=== PATIENT | female | born 1945 | race American Indian/Alaskan Native ===

== ENCOUNTER 2016-12-05 18:46 | Observation (INO) | payer MEDICARE, OTHER ==
--- NOTE | 2016-12-05 19:11 | ED PDOC ---
Arrival/HPI <Chayo Mckinley - Last Filed: 12/05/16 20:43> - General Historian: Patient <Roque Garcia - Last Filed: 12/12/16 14:57> - General Chief Complaint: Dizziness/Lightheaded Time Seen by Provider: 12/05/16 18:50 - History of Present Illness Narrative History of Present Illness (Text): 12/05/16 19:09 71 year old female, pmh including hypertension/hyperlipidemia/renal insufficiency, nkda, complaining of feeling dizziness x 2 days and lt. shoulder pain started today. Pt. stated that she has been feeling dizziness, room spinning sensation as if she will fall and pass out, started to have the lt. shoulder pain today, no coughing or night sweat, no fall or trauma, no urinary symptoms, no night sweat, no palpitation, no other medical or psychological complaints. (Roque Garcia) Past Medical History - Provider Review Nursing Documentation Reviewed: Yes - Infectious Disease Hx of Infectious Diseases: None - Tetanus Immunization Tetanus Immunization: Unknown - Cardiac Hx Cardiac Disorders: Yes Hx Hypertension: Yes - Pulmonary Hx Respiratory Disorders: No - Neurological Hx Neurological Disorder: Yes Hx Dizziness: Yes (03/27/16) - HEENT Hx HEENT Disorder: No (wears glasses) - Renal Hx Renal Disorder: No - Endocrine/Metabolic Hx Endocrine Disorders: No - Hematological/Oncological Hx Blood Disorders: No - Integumentary Other/Comment: right forearm dark skin discoloration bi c/o pain/itch - Musculoskeletal/Rheumatological Hx Falls: No - Gastrointestinal Hx Gastrointestinal Disorders: Yes Hx Gastroesophageal Reflux: Yes - Genitourinary/Gynecological Hx Genitourinary Disorders: Yes - Psychiatric Hx Substance Use: No - Surgical History Hx Hysterectomy: Yes - Anesthesia Hx Anesthesia: Yes Hx Anesthesia Reactions: No Hx Malignant Hyperthermia: No - Suicidal Assessment Feels Threatened In Home Enviroment: No <Roque Garcia - Last Filed: 12/12/16 14:57> Family/Social History - Physician Review Nursing Documentation Reviewed: Yes Family/Social History: Unknown Family HX Smoking Status: Never Smoked Hx Alcohol Use: No Hx Substance Use: No Hx Substance Use Treatment: No <Roque Garcia - Last Filed: 12/12/16 14:57> Allergies/Home Meds <Chayo Mckinley - Last Filed: 12/05/16 20:43> <Garcia,Roque Q - Last Filed: 12/12/16 14:57> Allergies/Adverse Reactions: Allergies No Known Allergies Allergy (Verified 12/05/16 18:48) Home Medications: Home Meds Medication Instructions Recorded Confirmed hydrALAZINE [Apresoline] 100 mg PO BID 08/10/16 12/05/16 Losartan [Cozaar] 12.5 mg PO DAILY 12/05/16 12/05/16 Metoprolol Tartrate [Lopressor] 100 mg PO BID 12/05/16 12/05/16 Pravastatin Sodium [Pravachol] 40 mg PO DAILY 12/05/16 12/05/16 Review of Systems - Review of Systems Constitutional: Fatigue. absent: Fevers Eyes: absent: Vision Changes ENT: absent: Hearing Changes Respiratory: absent: SOB, Cough Cardiovascular: Chest Pain Gastrointestinal: absent: Abdominal Pain, Nausea, Vomiting Musculoskeletal: Arthralgias. absent: Back Pain, Neck Pain, Joint Swelling, Myalgias Neurological: Dizziness. absent: Headache, Focal Weakness, Gait Changes, Speech Changes, Facial Droop, Disequilibrium, Seizure <Roque Garcia Q - Last Filed: 12/12/16 14:57> Physical Exam Vital Signs Reviewed: Yes Temperature: Afebrile Blood Pressure: Normal Pulse: Regular Respiratory Rate: Normal Appearance: Positive for: Well-Appearing, Non-Toxic, Comfortable Pain Distress: Mild Mental Status: Positive for: Alert and Oriented X 3 - Systems Exam Head: Present: Atraumatic, Normocephalic Pupils: Present: PERRL Extroacular Muscles: Present: EOMI Conjunctiva: Present: Normal Mouth: Present: Moist Mucous Membranes Neck: Present: Normal Range of Motion Respiratory/Chest: Present: Clear to Auscultation, Good Air Exchange. No: Respiratory Distress, Accessory Muscle Use Cardiovascular: Present: Regular Rate and Rhythm, Normal S1, S2. No: Murmurs Abdomen: Present: Normal Bowel Sounds. No: Tenderness, Distention, Peritoneal Signs, Rebound, Guarding Back: Present: Normal Inspection Upper Extremity: Present: Normal Inspection, Other (Lt. shoulder: +ttp on the lt. anterior shoulder joint line with no swelling, no deformity, FROM without limitation with pain upon active movement, sensation intact, motor 5/5, +radial pulse, capillary refill< 2 seconds, neurovascular intact. ). No: Cyanosis, Edema Lower Extremity: Present: Normal Inspection. No: Edema Neurological: Present: GCS=15, Speech Normal, Motor Func Grossly Intact, Gait Normal, Memory Normal Skin: Present: Warm, Dry, Normal Color. No: Rashes Psychiatric: Present: Alert, Oriented x 3, Normal Insight, Normal Concentration <Roque Garcia - Last Filed: 12/12/16 14:57> Vital Signs Temp Pulse Resp BP Pulse Ox 12/05/16 21:21 66 18 123/79 95 12/05/16 18:54 97.6 F 70 16 144/64 100 Medical Decision Making <Chayo Mckinley - Last Filed: 12/05/16 20:43> - Lab Interpretations Interpretation: Abnormal lab values (K+ 2.8) - RAD Interpretation Machine Packer: Radiologist - EKG Interpretation Interpreted by ED Physician: Yes Type: 12 lead EKG Comparison: Com.w/previous EKG <Roque Garcia - Last Filed: 12/12/16 14:57> ED Course and Treatment: 12/05/16 19:10 -labs/ua/trop -swallow screen -ekg/cxr/CT head -Observe and reassess 12/05/16 21:17 -EKG: NSR @ 65 BPM, no St elevation or depression, no T wave inversion, prolong QT noted. -CT Head show no acute findings but will need follow up imaging if indicated -Labs are non-significant except potasskum 2.8, IVF and potassium ordered. -Pt. is high fall risk -Aspirin 325mg po ordered. -I discussed the labs/radiology results with the covering doctor DR. Del Cid, she agreed on the admission to the tele with Dr. Jeronimo for consults. -I discussed with Dr. Mckinley about the case and he will put in the admission order. (Roque Garcia) - Lab Interpretations Lab Results: 12/05/16 19:11 12/05/16 19:11 Lab Results 12/05/16 19:11: Sodium 130 L, Potassium 2.8 L* D, Chloride 89 L, Carbon Dioxide 29, Anion Gap 15, BUN 26 H, Creatinine 1.2, Est GFR ( Amer) 53, Est GFR ( Non-Af Amer) 44, Random Glucose 108, Calcium 9.5, Total Bilirubin 1.1, AST 28, ALT 32, Alkaline Phosphatase 58, Lactate Dehydrogenase 437, Total Creatine Kinase 169, Troponin I 0.02 D, NT-Pro-B Natriuret Pep 278, Total Protein 7.5, Albumin 4.2, Globulin 3.3, Albumin/Globulin Ratio 1.3 12/05/16 19:11: WBC 6.8, RBC 4.29, Hgb 11.7 L, Hct 34.2 L, MCV 79.7 L, MCH 27.3 , MCHC 34.2, RDW 14.5, Plt Count 258, MPV 9.8, Gran % 54.5, Lymph % (Auto) 36.5 H, [place] % (Auto) 7.1 H, Eos % (Auto) 1.6, Baso % (Auto) 0.3, Gran # 3.69, Lymph # 2.5, [place] # 0.5, Eos # 0.1, Baso # 0.02 - RAD Interpretation Radiology Orders: 12/05/16 19:06 HEAD W/O CONTRAST [CT] Stat CHEST PORTABLE [RAD] Stat 12/05/16 19:08 SHOULDER LEFT [RAD] Stat 12/05/16 19:35 DUPLEX UPPER EXTRM VEIN LEFT [US] Stat CT Head: Lt. shoulder xray: Chest x-ray: KWAME Venuous doppler: (Roque Garcia) - EKG Interpretation EKG Interpretation (Text): 12/05/16 20:16 -EKG: NSR @ 65 BPM, no St elevation or depression, no T wave inversion, prolong QT noted. (Roque Garcia) - Medication Orders Current Medication Orders: Discontinued Medications Acetaminophen (Tylenol 325mg Tab) 650 mg PO Q6H PRN PRN Reason: Fever >100.4 F Last Admin: 12/07/16 15:00 Dose: 650 mg Aspirin (Aspirin) 325 mg PO STAT ST[facility] Stop: 12/05/16 21:07 Last Admin: 12/05/16 21:21 Dose: 325 mg Aspirin (Ecotrin) 81 mg PO DAILY [facility] Last Admin: 12/07/16 10:06 Dose: 81 mg Atorvastatin Calcium (Lipitor) 10 mg PO DIN [facility] Last Admin: 12/06/16 17:57 Dose: 10 mg Hydralazine HCl (Apresoline) 100 mg PO BID [facility] Last Admin: 12/06/16 18:00 Dose: Not Given Non-Admin Reason: BP Parameters Not Met Hydralazine HCl (Apresoline) 50 mg PO BID [facility] Last Admin: 12/07/16 13:38 Dose: 50 mg Potassium Chloride 20 meq/ (Sodium Chloride) 1,010 mls @ 200 mls/hr IV .Q5H3M STA Stop: 12/06/16 01:17 Last Admin: 12/05/16 21:21 Dose: 200 mls/hr Potassium Chloride (Potassium Chloride 20 Meq/100 Ml) 20 meq in 100 mls @ 50 mls/hr IVPB Q2H [facility] Stop: 12/06/16 04:59 Last Admin: 12/06/16 04:36 Dose: 50 mls/hr Losartan Potassium (Cozaar) 12.5 mg PO DAILY [facility] Last Admin: 12/07/16 10:06 Dose: 12.5 mg Metoprolol Tartrate (Lopressor) 100 mg PO BRKDIN [facility] Last Admin: 12/07/16 07:55 Dose: Metoprolol Tartrate (Lopressor) 50 mg PO BID [facility] Last Admin: 12/07/16 10:07 Dose: 50 mg Potassium Chloride (K-Dur 20 Meq Er Tab) 20 meq PO BID [facility] Last Admin: 12/07/16 10:36 Dose: Not Given Non-Admin Reason: Patient Refused Potassium Chloride (K-Dur 20 Meq Er Tab) 40 meq PO Q2H [facility] Stop: 12/06/16 02:31 Last Admin: 12/06/16 03:29 Dose: 40 meq NIHSS Scale ([place]) Time Performed: 19:33 - How Severe is the Stoke Baseline Level of Consciousness: 0=Alert LOC to Questions: 0=Both comments correct LOC to commands: 0=Obeys both correctly Best Gaze: 0=Normal Visual: 0=No visual loss Facial: 0=Normal Motor Arm - Left: 0=No drift Motor Arm - Right: 0=No drift Motor Leg - Left: 0=No drift Motor Leg - Right: 0=No drift Limb Ataxia: 0=Absent Sensory: 0=Normal Best Language: 0=No aphasia Dysarthia: 0=Normal articulation Extinction & Inattention (Neglect): 0=Normal, no object Score: 0 Risk Level: No Stroke Risk <Roque Garcia - Last Filed: 12/12/16 14:57> - PA / MEDICAID NURSE / Resident Statement LITA has reviewed & agrees with the documentation as recorded. LITA has examined the patient and agrees with the treatment plan. <Chayo Mckinley - Last Filed: 12/05/16 20:43> - PA / MEDICAID NURSE / Resident Statement LITA has reviewed & agrees with the documentation as recorded. LITA has examined the patient and agrees with the treatment plan. <Roque Garcia - Last Filed: 12/12/16 14:57> Disposition/Present on Arrival <Chayo Mckinley - Last Filed: 12/05/16 20:43> - Present on Arrival Any Indicators Present on Arrival: No History of DVT/PE: No History of Uncontrolled Diabetes: No Urinary Catheter: No History of Decub. Ulcer: No History Surgical Site Infection Following: None - Disposition Have Diagnosis and Disposition been Completed?: Yes Disposition Time: 20:31 Patient Plan: Admission, Telemetry <Roque Garcia - Last Filed: 12/12/16 14:57> - Disposition Diagnosis: Near syncope, Chest pain, Hypokalemia, Hyponatremia Disposition: HOSPITALIZED Condition: STABLE
[2016-12-05 19:23] LABS: ADD MANUAL DIFF? NO
[2016-12-05 19:36] LABS: BASO # 0.02 K/mm3 (0.0-2.0); BASO % 0.3 % (0.0-3.0); EOS # 0.1 (0.0-0.7); EOS % 1.6 % (1.5-5.0); GRAN # 3.69 (1.4-6.5); GRAN % 54.5 % (50.0-68.0); HEMATOCRIT 34.2 % (36.0-48.0); LYMPH # 2.5 (1.2-3.4); LYMPH % 36.5 % (22.0-35.0); MEAN CELL VOLUME 79.7 fL (80.0-105.0); MEAN CORPUSCULAR HEMOGLOBIN 27.3 pg (25.0-35.0); MEAN CORPUSCULAR HGB CONC 34.2 g/dl (31.0-37.0); MEAN PLATELET VOLUME 9.8 fl (7.0-11.0); MONO # 0.5 (0.1-0.6); MONO % 7.1 % (1.0-6.0); PLATELET COUNT 258 10^3/uL (120.0-450.0); RED CELL DISTRIBUTION WIDTH 14.5 % (11.5-14.5); WHITE BLOOD COUNT 6.8 10^3/ul (4.5-11.0)
[2016-12-05 19:57] LABS: ALB/GLOB RATIO 1.3 (1.1-1.8); BILIRUBIN,TOTAL 1.1 mg/dL (0.2-1.3); CALCIUM 9.5 mg/dL (8.4-10.5); TOTAL PROTEIN 7.5 g/dL (5.8-8.3)
[2016-12-05 20:08] LABS: TROPONIN I 0.02 ng/mL
[2016-12-05 20:11] LABS: POTASSIUM 2.8 mmol/L (3.6-5.0)
--- NOTE | 2016-12-05 20:56 | CT ---
EXAM: CT Head Without Intravenous Contrast CLINICAL HISTORY: 71 years old, female; Signs and symptoms; Dizziness; Patient HX: Dizziness x 2 days TECHNIQUE: Axial computed tomography images of the head/brain without intravenous contrast. This CT exam was performed using one or more of the following dose reduction techniques: automated exposure control, adjustment of the mA and/or kV according to patient size, and/or use of iterative reconstruction technique. COMPARISON: CT - HEAD W/O CONTRAST 03/28/2016 8:29:11 PM FINDINGS: Brain: Mild atrophy. No intracranial hemorrhage. No mass. Few scattered foci of decreased attenuation within periventricular/subcortical white matter. No definite edema. Ventricles: No hydrocephalus. Bones/joints: No acute fracture. Soft tissues: Unremarkable. Sinuses: No acute sinusitis. Mastoid air cells: No mastoid effusion. Orbits: Unremarkable as visualized. IMPRESSION: 1. Nonspecific white matter changes. Acute infarction may be CT occult within first 24 hours. If a focal deficit persists, consider followup CT or MRI for further evaluation. 2. Incidental/non-acute findings are described above.
[2016-12-05 22:37] LABS: URINE BILIRUBIN NEGATIVE (NEGATIVE); URINE BLOOD NEGATIVE (NEGATIVE); URINE GLUCOSE (UA) NEGATIVE (NEGATIVE); URINE KETONE NEGATIVE (NEGATIVE); URINE LEUKOCYTE ESTERASE NEGATIVE Leu/uL (NEGATIVE); URINE PROTEIN NEGATIVE mg/dL (<30 mg/dL); URINE UROBILINOGEN 0.2 E.U./dL (<1 E.U./dL)
[2016-12-05 22:43] LABS: URINE APPEARANCE CLEAR (CLEAR); URINE COLOR LIGHT YELLOW (YELLOW)
--- NOTE | 2016-12-06 00:18 | CP.PCM.PN ---
Subjective - Date & Time of Evaluation Date of Evaluation: 12/06/16 Time of Evaluation: 00:17 - Subjective Subjective: hypokalemia. bladder scan >500 CC Objective - Vital Signs/Intake and Output Vital Signs (last 24 hours): Temp Pulse Resp BP Pulse Ox 97.6 F 66 17 127/62 100 12/05/16 18:54 12/05/16 23:17 12/05/16 23:17 12/05/16 23:17 12/05/16 23:17 - Medications Medications: Current Medications Acetaminophen (Tylenol 325mg Tab) 650 mg PO Q6H PRN PRN Reason: Fever >100.4 F Aspirin (Ecotrin) 81 mg PO DAILY [facility] Atorvastatin Calcium (Lipitor) 10 mg PO DIN [facility] Last Admin: 12/05/16 22:34 Dose: 10 mg Furosemide (Lasix) 40 mg PO DAILY [facility] Hydralazine HCl (Apresoline) 100 mg PO BID [facility] Potassium Chloride 20 meq/ (Sodium Chloride) 1,010 mls @ 200 mls/hr IV .Q5H3M STA Stop: 12/06/16 01:17 Last Admin: 12/05/16 21:21 Dose: 200 mls/hr Losartan Potassium (Cozaar) 12.5 mg PO DAILY [facility] Metoprolol Tartrate (Lopressor) 100 mg PO BRKDIN [facility] Potassium Chloride (K-Dur 20 Meq Er Tab) 20 meq PO BID [facility] Potassium Chloride (K-Dur 20 Meq Er Tab) 40 meq PO Q2H [facility] Stop: 12/06/16 02:31 - Labs Labs: 12/05/16 22:28
[2016-12-06] MEDS: Potassium Chloride 20 mEq ER Tab PO SCH ×4 (00:26→17:57)
--- NOTE | 2016-12-06 00:42 | CP.PCM.PN ---
Subjective - Date & Time of Evaluation Date of Evaluation: 12/06/16 Time of Evaluation: 00:39 - Subjective Subjective: Patient was seen at bedside. She is not able to pass urine and she has urge to pass urine. Her potassium level was 2.3 mEq. Also she had 558 ml urine in bladder as per bladder scan and had difficulty in passing urine. Has no other complaints. This 71 year old woman was admitted with dizziness, left shoulder pain, chest pain, near syncope, hypokalemia, hyponatremia. Has PMH of HTN,dyslipidemia, hystrectomy , tubal ligation, SUKHDEV. Objective - Vital Signs/Intake and Output Vital Signs (last 24 hours): Temp Pulse Resp BP Pulse Ox 97.6 F 66 17 127/62 100 12/05/16 18:54 12/05/16 23:17 12/05/16 23:17 12/05/16 23:17 12/05/16 23:17 - Medications Medications: Current Medications Acetaminophen (Tylenol 325mg Tab) 650 mg PO Q6H PRN PRN Reason: Fever >100.4 F Aspirin (Ecotrin) 81 mg PO DAILY [facility] Atorvastatin Calcium (Lipitor) 10 mg PO DIN [facility] Last Admin: 12/05/16 22:34 Dose: 10 mg Furosemide (Lasix) 40 mg PO DAILY [facility] Hydralazine HCl (Apresoline) 100 mg PO BID [facility] Potassium Chloride 20 meq/ (Sodium Chloride) 1,010 mls @ 200 mls/hr IV .Q5H3M STA Stop: 12/06/16 01:17 Last Admin: 12/05/16 21:21 Dose: 200 mls/hr Losartan Potassium (Cozaar) 12.5 mg PO DAILY [facility] Metoprolol Tartrate (Lopressor) 100 mg PO BRKDIN [facility] Potassium Chloride (K-Dur 20 Meq Er Tab) 20 meq PO BID [facility] Potassium Chloride (K-Dur 20 Meq Er Tab) 40 meq PO Q2H [facility] Stop: 12/06/16 02:31 Last Admin: 12/06/16 00:26 Dose: 40 meq - Labs Labs: 12/05/16 22:28 - Constitutional Appears: Well, No Acute Distress - Head Exam Head Exam: ATRAUMATIC, NORMAL INSPECTION, NORMOCEPHALIC - Eye Exam Eye Exam: Normal appearance - ENT Exam ENT Exam: Normal External Ear Exam - Neck Exam Neck Exam: Normal Inspection - Respiratory Exam Respiratory Exam: NORMAL BREATHING PATTERN - Cardiovascular Exam Cardiovascular Exam: absent: JVD - GI/Abdominal Exam GI & Abdominal Exam: absent: Distended - Rectal Exam Rectal Exam: Deferred - Extremities Exam Extremities Exam: Normal Inspection - Back Exam Back Exam: NORMAL INSPECTION - Neurological Exam Neurological Exam: Alert, Normal Gait, Oriented x3 Additional comments: Watched her coming back from bathroom. - Psychiatric Exam Psychiatric exam: Normal Affect, Normal Mood - Skin Skin Exam: Normal Color Assessment and Plan - Assessment and Plan (Free Text) Assessment: A/P:Hypokalemia. Hyponatremia. Urinar retention. Near syncope. Dizziness. Borderline anemia. dyslipidemia. Replacement of potassium as ordered. Patient will wait and try again to urinate. If she is not able to pass urine will drain bladder with urinary catheter.
[2016-12-06 00:46] VITALS: BMI 27.4
[2016-12-06 07:37] LABS: ADD MANUAL DIFF? NO
[2016-12-06 07:57] LABS: BASO # 0.01 K/mm3 (0.0-2.0); BASO % 0.2 % (0.0-3.0); BLOOD UREA NITROGEN 20 mg/dL (7-21); CALCIUM 8.7 mg/dL (8.4-10.5); CARBON DIOXIDE 27 mmol/L (21-33); CHLORIDE 99 mmol/L (98-107); EOS # 0.1 (0.0-0.7); EOS % 1.5 % (1.5-5.0); GFR AFRICAN-AMERICAN > 60; GLUCOSE,RANDOM 101 mg/dL (70-110); GRAN # 3.53 (1.4-6.5); GRAN % 64.4 % (50.0-68.0); HEMATOCRIT 32.6 % (36.0-48.0); LYMPH # 1.6 (1.2-3.4); LYMPH % 28.6 % (22.0-35.0); MEAN CELL VOLUME 80.5 fL (80.0-105.0); MEAN CORPUSCULAR HEMOGLOBIN 27.2 pg (25.0-35.0); MEAN CORPUSCULAR HGB CONC 33.7 g/dl (31.0-37.0); MONO # 0.3 (0.1-0.6); MONO % 5.3 % (1.0-6.0); PLATELET COUNT 254 10^3/uL (120.0-450.0); POTASSIUM 3.8 mmol/L (3.6-5.0); RED CELL DISTRIBUTION WIDTH 14.4 % (11.5-14.5); SODIUM 134 mmol/L (132-148); WHITE BLOOD COUNT 5.5 10^3/ul (4.5-11.0)
[2016-12-06 08:09] LABS: TROPONIN I 0.02 ng/mL
--- NOTE | 2016-12-06 08:53 | RAD ---
PROCEDURE: Radiographs of the Left Shoulder HISTORY: lt. shoulder pain COMPARISON: No prior. FINDINGS: BONES: No fracture or dislocation. JOINTS: Mild arthritis. SOFT TISSUES: Normal. OTHER FINDINGS: None. IMPRESSION: Mild arthritis.
--- NOTE | 2016-12-06 09:10 | RAD ---
PROCEDURE: CHEST RADIOGRAPH, 1 VIEW HISTORY: lt. sided chest pain COMPARISON: None available. FINDINGS: LUNGS: Clear. PLEURA: No pneumothorax or pleural fluid seen. CARDIOVASCULAR: Normal. OSSEOUS STRUCTURES: The osseous structures demonstrate degenerative changes. VISUALIZED UPPER ABDOMEN: Upper abdomen is suboptimally evaluated. OTHER FINDINGS: None. IMPRESSION: Clear lungs. No significant interval change.
[2016-12-06] MEDS ORDERED: Non Formulary Medication (Pravastatin Sodium [Pravachol] 40 MG) PO SCH (10:00)
--- NOTE | 2016-12-06 10:35 | CARD ---
APPROVED REPORT EKG Measurement Heart [id number] <Conclusion> Normal sinus rhythm NSSTW changes Prolonged QT LAD LVH by voltage
--- NOTE | 2016-12-06 10:47 | CARD ---
APPROVED REPORT EKG Measurement Heart [id number] <Conclusion> Normal sinus rhythm Nonspecific T wave abnormality Prolonged QT LAD No change
[2016-12-06 11:01] LABS: IRON 64 ug/dL (45-180)
--- NOTE | 2016-12-06 11:09 | HP ---
HISTORY OF PRESENT ILLNESS: The patient is a 71-year-old female, presented to the ED with dizziness. A spinning sensation of the room. She felt like she will fall and pass out. Also, complaining of left shoulder pain. She has history of hypertension. Blood pressure controlled with current medication. History of hyperlipidemia. She also has history of renal insufficiency. Renal functions have been stable in the recent past. Denies any fever. No shortness of breath, no urinary complaints. Blood work also showed anemia with low hemoglobin and microcytosis. She was found to be hyponatremic and hypokalemic. PAST MEDICAL HISTORY: Hypertension, dizziness, GE reflux, recurrent UTI, chronic kidney disease. PAST SURGICAL HISTORY: Hysterectomy. FAMILY HISTORY: Noncontributory. No positive history in mother or father. PERSONAL HISTORY: Never smoked. No history of alcohol abuse. ALLERGIES: No known drug allergies. HOME MEDICATIONS: Hydralazine 100 mg p.o. b.i.d., ciprofloxacin 250 mg p.o. b.i.d., Lasix 40 mg daily, Cozaar 12.5 mg daily, metoprolol 100 mg p.o. b.i.d., Pravachol 40 mg daily. REVIEW OF SYSTEMS: As per HPI, rest of 12-point reviewed and negative. PHYSICAL EXAMINATION: GENERAL: Comfortable in bed, in no acute distress. VITAL SIGNS: Temperature 97.6, heart rate 70 per minute, respiratory rate 16 per minute, blood pressure 144/60, pulse ox is 100 per minute. HEENT: Head atraumatic, normocephalic. Oral mucosa moist. NECK: Supple. No lymphadenopathy. CHEST: Air entry present, equal bilateral. No added sound. CARDIOVASCULAR: Within normal limits. ABDOMEN: Soft, nontender, no hepatosplenomegaly. EXTREMITIES: No edema. CENTRAL NERVOUS SYSTEM: Alert, oriented x 3, no focal sensorimotor deficit. SKIN: No petechia, no rash. SPINE: Nontender. LYMPHADENOPATHY: None. LABORATORIES: Sodium 130, potassium 2.8, BUN 26, creatinine 1.2, glucose 108. White count 6.8, hemoglobin 11.7, hematocrit 32.2, platelet count 258, granulocytes 64%, lymphocytes 36%, monocytes 7%. UA negative. ASSESSMENT: 1. Syncope. 2. Hyponatremia. 3. Hypokalemia. 4. Chronic kidney disease. 5. Anemia. 6. Microcytosis. 7. Gastroesophageal reflux. PLAN: We will admit her to telemetry. Three sets of cardiac enzymes will be drawn. Neurology consultation, Dr. Johnson, requested. We will continue aspirin 81 mg daily. Continue Lipitor 10 mg daily. Continue Lasix 40 mg daily , hydralazine 100 mg p.o. b.i.d. We will continue Cozaar 12.5 mg daily, metoprolol 100 mg daily, K-Dur 20 mEq p.o. b.i.d. She received 40 mEq p.o. potassium in the ER. We will also give normal saline 80 mL an hour. Shoulder x -ray did not show any pathology. Cardiology consultation with Dr. Jeronimo requested. We will order iron studies, B12, folate for evaluation of anemia. She has peptic ulcer disease and chronic kidney disease. Anemia might be related to occult gastrointestinal bleed and chronic kidney disease. Shailni Del Cid MD cc: [id number] TT: 12/06/2016 11:09:16 en MTDD
--- NOTE | 2016-12-06 13:12 | CON ---
DATE: 12/06/2016 INDICATIONS: Dizziness, vertigo, hypokalemia, coronary artery disease, old myocardial infarction. This is a 71-year-old woman admitted through the Emergency Room yesterday with 2 days' of dizziness, vertiginous feeling, weakness and left shoulder discomfort. She was found to have an extremely low potassium at 2.3. This was replaced with 120 mEq and today she is feeling much better on telemetry without dizziness, vertigo or other cardiac symptoms including chest pain, shortness of breath, shoulder pain, orthopnea, PND, syncope, edema, claudication. There is no fever, chills, cough, sputum production, hemoptysis, abdominal pain, nausea, vomiting, diarrhea, constipation, melena. PAST MEDICAL HISTORY: Notable for remote coronary artery disease and myocardial infarction. She is uncertain of the details. She is treated for hypertension, hyperlipidemia and has a history of a hysterectomy and tubal ligation. There is no history of rheumatic fever, congestive heart failure, angina, stroke, TIA, diabetes or gout. MEDICATIONS: At the time of admission include hydralazine, Cipro, Cozaar, aspirin, Lasix, Lipitor, metoprolol, pravastatin. ALLERGIES: There are no medication allergies reported. She lives at home. She is ambulatory. She does not smoke. She does not drink. FAMILY HISTORY: Noncontributory. REVIEW OF SYSTEMS: Ten point otherwise unremarkable except as noted above. PHYSICAL EXAMINATION: GENERAL: She is a well-developed, elderly woman, in no acute distress, resting in bed on telemetry. VITAL SIGNS: Notable for sinus rhythm at 62 beats per minute, 97.8, 129/63, respirations 20, O2 sat 98%-100% on room air. HEENT: Reveals no neck vein distention, thyromegaly, carotid bruit. Mucous membranes moist. Conjunctivae pink. NECK: Supple. CHEST: Lung valle clear throughout. HEART: Revealed normal first and second heart sounds. ABDOMEN: Soft, bowel sounds are present. No mass, organomegaly, tenderness, rebound, guarding, CVA tenderness or palpable abdominal aortic aneurysm. EXTREMITIES: Revealed no cyanosis, clubbing, or edema. NEUROLOGIC: Awake, alert and oriented. SKIN: Warm and dry. No rash or cellulitis. PSYCHIATRIC: Normal as to mood and affect. LABORATORY AND IMAGING: A chest x-ray is a portable study. It is not interpreted. My reading is clear lungs, no CHF, infiltrate or effusion. CT scan of the head is noted, no acute findings. White count normal, platelet count normal, hemoglobin 11, hematocrit 32.6. Electrolytes notable for sodium of 130, potassium 2.8, this morning 134 and 3.8 respectively. BUN 26, repeat 20. Creatinine 1.2, repeat 1.0. LFTs unremarkable. CK is negative. Troponin is negative. BNP 278. EKG demonstrates regular sinus rhythm with nonspecific ST wave changes and prolonged QT interval. IMPRESSION: The patient is a 71-year-old woman with a history of coronary artery disease, remote myocardial infarction (details unavailable), who presents with severe hypokalemia and symptoms including weakness, dizziness, vertigo and shoulder discomfort. She was on Lasix for hypertension, but no potassium replacement. At this time, her potassium has normalized. I recommend additional p.o. potassium supplementation. I will check an echocardiogram and a magnesium level. She is on hydralazine, losartan, aspirin, metoprolol, Lipitor. Upper extremity duplex ultrasound has been ordered. Shoulder x-ray has been done, but the report is pending. I would check her postural vital signs. She can be out of bed to a chair. I will follow along with you and make additional recommendations based on her clinical course. Cong Jeronimo MD cc: [id number] TT: 12/06/2016 13:11:35 Confirmation # [id number] Dictation # [id number] en MTDD
[2016-12-06 18:27] LABS: FOLATE 12.1 ng/mL
[2016-12-07 06:22] VITALS: O2SAT 98
[2016-12-07 07:48] LABS: BLOOD UREA NITROGEN 14 mg/dL (7-21); CALCIUM 8.9 mg/dL (8.4-10.5); CARBON DIOXIDE 28 mmol/L (21-33); CHLORIDE 106 mmol/L (98-107); GFR AFRICAN-AMERICAN > 60; GLUCOSE,RANDOM 89 mg/dL (70-110); POTASSIUM 4.3 mmol/L (3.6-5.0); SODIUM 139 mmol/L (132-148)
--- NOTE | 2016-12-07 07:50 | PN ---
DATE: 12/07/2016 SUBJECTIVE: The patient has no complaints of any chest pain, no shortness of breath. She had a sens ation of dizziness, mostly a spinning sensation, so she was admitted for further evaluation. She say s that her dizziness has improved. She has no complaints of any headaches or dizziness, no chest keith n, no nausea. PHYSICAL EXAMINATION: VITAL SIGNS: Temperature 98, pulse of 73, blood pressure 115/67, respirations 20, O2 saturation 98%. GENERAL: The patient comfortable, in no acute distress. HEENT: Anicteric sclerae. Moist mucosa. NECK: No JVD or adenopathy. CARDIAC: S1/S2. No murmurs. No rubs. Regular. RESPIRATORY: Clear to auscultation bilaterally. No wheezes, rales, or rhonchi. Good air entry. ABDOMEN: Bowel sounds are positive, soft, nontender, and nondistended. EXTREMITIES: No edema. Has 1+ pulses. ASSESSMENT: 1. Dizziness 2. Hypokalemia. 3. Hyponatremia. 4. Gastroesophageal reflux disease. 5. Hypertension. 6. Dyslipidemia. PLAN: The patient is currently comfortable. She had been on diuretic therapy, and this may be the c ause of her hyponatremia and hypokalemia. She is going to continue her losartan for hypertension. S he is on aspirin. She is on Lipitor for dyslipidemia. She was given IV fluids. She has an echo kvng t has been ordered by Dr. Jeronimo. She had an ultrasound of her ____ that is pending. She had a CT o f the head done that shows nonspecific white matter changes. Will also get evaluation by physical tariq guerrero. Daljit Carney MD cc: [id number] TT: 12/07/2016 07:49:11 Confirmation # [id number] Dictation # [id number] suresh
--- NOTE | 2016-12-07 08:58 | US ---
PROCEDURE: Left upper extremity venous ultrasound HISTORY: Arm pain and swelling. Evaluate for deep venous thrombosis. PHYSICIAN(S): Chava Roth MD. FINDINGS: The visualized leftinternal jugular vein is sonographically normal and compressible. No evidence of obstruction or thrombus is seen. The visualized segments of the left subclavian vein are patent with normal waveforms. No sonographic evidence of obstruction or thrombosis is seen. The visualized deep venous system of the proximal leftupper extremity is sonographically normal and compressible. IMPRESSION: 1. No sonographic evidence for deep venous thrombosis in the visualized segments of the left upper extremity.
--- NOTE | 2016-12-07 09:40 | CP.PCM.PN ---
Subjective - Date & Time of Evaluation Date of Evaluation: 12/07/16 Time of Evaluation: 07:00 - Subjective Subjective: Stable on 2R. No CP or SOB. She feels better. V/S noted. No postural BP changes. BP and HR low at times. Meds held. PE: Lungs: clear Cor.: S1S2 Abd.: soft Ext.: no edema Neuro.: alert I/O= 1500/860 Labs: K+= 4.3, Mg.++= 2.0 Objective - Vital Signs/Intake and Output Vital Signs (last 24 hours): Temp Pulse Resp BP Pulse Ox 98 F 73 20 115/67 98 12/07/16 06:00 12/07/16 07:55 12/07/16 06:00 12/07/16 07:55 12/07/16 06:00 Intake and Output: 12/07/16 12/07/16 06:59 18:59 Intake Total 240 Output Total 800 Balance -560 - Medications Medications: Current Medications Acetaminophen (Tylenol 325mg Tab) 650 mg PO Q6H PRN PRN Reason: Fever >100.4 F Aspirin (Ecotrin) 81 mg PO DAILY [facility] Last Admin: 12/06/16 10:43 Dose: 81 mg Atorvastatin Calcium (Lipitor) 10 mg PO DIN [facility] Last Admin: 12/06/16 17:57 Dose: 10 mg Hydralazine HCl (Apresoline) 50 mg PO BID [facility] Losartan Potassium (Cozaar) 12.5 mg PO DAILY [facility] Last Admin: 12/06/16 10:42 Dose: 12.5 mg Metoprolol Tartrate (Lopressor) 50 mg PO BID [facility] Potassium Chloride (K-Dur 20 Meq Er Tab) 20 meq PO BID [facility] Last Admin: 12/06/16 17:57 Dose: 20 meq - Labs Labs: 12/06/16 06:50 12/07/16 07:00 Assessment and Plan - Assessment and Plan (Free Text) Plan: Assessment: Weak/Dizzy/Severe hypokalemia CAD/Remote NM HBP HLD S/P hysterectomy Tubal Ligation Plan: Decrease metoprolol to 50 BID and hydralazine to 50 BID. D/C Lasix Check Echo OOB Home soon with close f/u of BP, labs, etc.>titrate BP meds further as out-pt.
[2016-12-07] MEDS: Potassium Chloride 20 mEq ER Tab PO SCH (10:36)
[2016-12-07 13:05] VITALS: BP 134/75; RESP 16; TEMP 97.5
[2016-12-07 13:39] VITALS: PULSE 90
--- NOTE | 2016-12-08 09:46 | CARD ---
APPROVED REPORT EXAM: Two-dimensional and M-mode echocardiogram with Doppler and color Doppler. Other Information Quality : GoodRhythm : INDICATION Dizziness and Vertigo , H/O Old IL. 2D DIMENSIONS Left Atrium (2D)3.3 (1.6-4.0cm)IVSd1.1 (0.7-1.1cm) LVDd4.1 (3.9-5.9cm)PWd1.0 (0.7-1.1cm) LVDs2.9 (2.5-4.0cm)FS (%) 29.2 % LVEF (%)56.0 (>50%) M-Mode DIMENSIONS Aortic Root2.60 (2.2-3.7cm)Aortic Cusp Exc.1.80 (1.5-2.0cm) Aortic Valve AoV Peak Fopnznbo341.0cm/s Mitral Valve E/A ratio0.0 TDI E/Lateral E'0.0E/Medial E'0.0 Tricuspid Valve TR Peak Wtgcvkmd130te/sRAP [id number] Peak Gr.27mmHg DJDM31ysIf LEFT VENTRICLE The left ventricle is normal size. There is normal left ventricular wall thickness. The left ventricular function is normal. The left ventricular ejection fraction is within the normal range. There is normal LV segmental wall motion. RIGHT VENTRICLE The right ventricle is normal size. ATRIA The left atrium size is normal. The right atrium size is normal. The interatrial septum is intact with no evidence for an atrial septal defect. AORTIC VALVE The aortic valve is mildly thickened. MITRAL VALVE The mitral valve is normal in structure. Mitral regurgitation is trace. TRICUSPID VALVE The tricuspid valve is normal in structure. There is mild tricuspid regurgitation. PULMONIC VALVE The pulmonic valve is not well visualized. GREAT VESSELS The aortic root is normal in size. PERICARDIAL EFFUSION There is no pericardial effusion. <Conclusion> The left ventricle is normal size. There is normal left ventricular wall thickness. The left ventricular function is normal.
--- NOTE | 2016-12-18 16:05 | DS ---
This is a 71-year-old female who was coming in to the hospital because of dizziness. She had been ta radha excess diuretic therapy with Lasix. She was hydrated and she felt better. She was ambulating. She was discharged home. She was advised not to take Lasix anymore. She is also taking hydrochloro thiazide as part of her medication regimen, and the combination may have caused excess diuresis. Daljit Carney MD cc: [id number] TT: 12/18/2016 14:52:13 [place]n
== END 2016-12-07 16:25 | disposition home or self-care (01) ==
LOC: ED 18:46 → ERH 21:18 → 2RSO 23:29
PROVIDERS: ADMIT Internal Medicine Medical Oncology; ATTEND Internal Medicine Nephrology
DX: R55 Syncope and collapse (principal); R07.9 Chest pain, unspecified; E87.6 Hypokalemia; E87.1 Hypo-osmolality and hyponatremia; D64.9 Anemia, unspecified; E78.5 Hyperlipidemia, unspecified; I12.9 Hypertensive chronic kidney disease with stage 1 through stage 4 chronic kidney disease, or unspecified chronic kidney disease; N18.9 Chronic kidney disease, unspecified; K21.9 Gastro-esophageal reflux disease without esophagitis; I25.10 Atherosclerotic heart disease of native coronary artery without angina pectoris; I25.2 Old myocardial infarction; Z79.899 Other long term (current) drug therapy; Z87.440 Personal history of urinary (tract) infections; Z90.710 Acquired absence of both cervix and uterus; Z98.51 Tubal ligation status; R40.2412 Glasgow coma scale score 13-15, at arrival to emergency department; R71.8 Other abnormality of red blood cells; R33.9 Retention of urine, unspecified; R42 Dizziness and giddiness
CPT/HCPCS: 36415; 70450; 71010; 73030; 80048; 80053; 81003; 82550; 82607; 82728; 82746; 83540; 83550; 83615; 83735; 83880; 84132; 84484; 85025; 92610; 93005; 93306; 93971; 97116; 97162; 99285; G0378; G8978; G8979; G8980; G8996; G8997; G8998; J3480; J7040

== ENCOUNTER 2016-12-16 18:12 | Observation (INO) | payer MEDICARE, OTHER ==
[2016-12-16] MEDS ORDERED: Sodium Chloride 0.9% 1,000 ML IV STA (19:15)
--- NOTE | 2016-12-16 19:19 | ED PDOC ---
Arrival/HPI - General Chief Complaint: Dizziness/Lightheaded Time Seen by Provider: 12/16/16 18:40 Historian: Patient - History of Present Illness Narrative History of Present Illness (Text): 12/16/16 19:08 A 71 year old female presents to the emergency department complaining of dizziness all day. Patient report in the middle of the night she got up to go to the bathroom and she "felt like I was going to " and fell to the ground and thinks she may have passed out. Then again in the morning she was getting out of bed and fell down due to dizziness. She said the second time she was able to catch her self with her hands and she did not hit her head or loss consciousness. Patient notes she has been feeling dizziness and day but denies any vision changes, chest pain, abdominal pain, nausea, vomiting, or any other complaints at this time. PMD: Dr. Hedrick Time/Duration: 24 hours Symptom Onset: Sudden Symptom Course: Unchanged Quality: Other Activities at Onset: Rest Context: Home Past Medical History - Provider Review Nursing Documentation Reviewed: Yes - Infectious Disease Hx of Infectious Diseases: None - Tetanus Immunization Tetanus Immunization: Unknown - Cardiac Hx Cardiac Disorders: Yes Hx Hypertension: Yes - Pulmonary Hx Respiratory Disorders: No - Neurological Hx Neurological Disorder: Yes Hx Dizziness: Yes (03/27/16) - HEENT Hx HEENT Disorder: No (wears glasses) - Renal Hx Renal Disorder: No - Endocrine/Metabolic Hx Endocrine Disorders: No - Hematological/Oncological Hx Blood Disorders: No - Integumentary Other/Comment: right forearm dark skin discoloration bi c/o pain/itch - Musculoskeletal/Rheumatological Hx Falls: No - Gastrointestinal Hx Gastrointestinal Disorders: Yes Hx Gastroesophageal Reflux: Yes - Genitourinary/Gynecological Hx Genitourinary Disorders: Yes - Psychiatric Hx Psychophysiologic Disorder: Yes Hx Anxiety: Yes Hx Substance Use: No - Surgical History Hx Hysterectomy: Yes - Anesthesia Hx Anesthesia: Yes - Suicidal Assessment Feels Threatened In Home Enviroment: No Family/Social History - Physician Review Nursing Documentation Reviewed: Yes Family/Social History: Unknown Family HX Smoking Status: Never Smoked Hx Alcohol Use: No Hx Substance Use: No Hx Substance Use Treatment: No Allergies/Home Meds Allergies/Adverse Reactions: Allergies No Known Allergies Allergy (Verified 12/16/16 18:20) Home Medications: Home Meds Medication Instructions Recorded Confirmed hydrALAZINE [Apresoline] 100 mg PO BID 08/10/16 12/16/16 Metoprolol Tartrate [Lopressor] 100 mg PO DAILY 12/05/16 12/16/16 Pravastatin Sodium [Pravachol] 40 mg PO DAILY 12/05/16 12/16/16 Furosemide [Lasix] 40 mg PO DAILY 12/16/16 12/16/16 Losartan/Hydrochlorothiazide 1 tab PO DAILY 12/16/16 12/16/16 [Losartan-Hctz 100-12.5 mg Tab] Review of Systems - Physician Review All systems were reviewed & negative as marked: Yes - Review of Systems Constitutional: absent: Fevers Eyes: absent: Vision Changes Respiratory: absent: SOB Cardiovascular: Syncope. absent: Chest Pain Gastrointestinal: absent: Abdominal Pain, Nausea, Vomiting Neurological: Dizziness Physical Exam Vital Signs Reviewed: Yes Vital Signs Temp Pulse Resp BP Pulse Ox 12/16/16 18:45 67 16 117/49 L 100 12/16/16 18:25 98.6 F 74 17 83/52 L 98 12/16/16 18:12 98.6 F 74 17 83/52 L 98 Temperature: Afebrile Blood Pressure: Hypotensive Pulse: Regular Respiratory Rate: Normal Appearance: Positive for: Well-Appearing, Non-Toxic, Comfortable Pain Distress: None Mental Status: Positive for: Alert and Oriented X 3 - Systems Exam Head: Present: Atraumatic, Normocephalic Pupils: Present: PERRL Extroacular Muscles: Present: EOMI Conjunctiva: Present: Normal Mouth: Present: Moist Mucous Membranes Pharnyx: Present: Normal. No: ERYTHEMA Neck: Present: Normal Range of Motion Respiratory/Chest: Present: Clear to Auscultation, Good Air Exchange. No: Respiratory Distress, Accessory Muscle Use Cardiovascular: Present: Regular Rate and Rhythm, Normal S1, S2. No: Murmurs Abdomen: Present: Normal Bowel Sounds. No: Tenderness, Distention, Peritoneal Signs Back: Present: Normal Inspection Upper Extremity: Present: Normal Inspection. No: Cyanosis, Edema Lower Extremity: Present: Normal Inspection. No: Edema Neurological: Present: GCS=15, CN II-XII Intact, Speech Normal Skin: Present: Warm, Dry, Normal Color. No: Rashes Psychiatric: Present: Alert, Oriented x 3, Normal Insight, Normal Concentration Medical Decision Making ED Course and Treatment: 12/16/16 19:08 Impression: A 71 year old female with dizziness and a possible syncopal episode. Differential Diagnosis include but are not limited to: hypotension vs. vertigo vs. electrolyte abnormality vs vasovagal Plan: -- Head CT -- Chest X-ray -- Labs -- Urinalysis -- IV Fluids -- Reassess and disposition Prior Visits: Notes and results from previous visits were reviewed. The patient last presented to the emergency department for evaluation of dizziness. Progress Notes: 12/16/16 20:36 Patient's initial BP in the 8os but improving. Will start IVF. Labs showing renal insufficiency. Per patient's meds, it appears she is on lasix, losartan/ HCTZ; etiology is likely medication-induced. Will start hydration and place on tele - discussed with Dr. Carney for admission to his service. 12/16/16 20:[address]: no acute findings. - Lab Interpretations Lab Results: 12/16/16 18:56 12/16/16 18:56 Lab Results 12/16/16 18:56: PT 10.7, INR 0.99, APTT 27.0 12/16/16 18:56: Sodium 132, Potassium 3.1 L, Chloride 92 L, Carbon Dioxide 27, Anion Gap 16, BUN 41 H, Creatinine 2.6 H, Est GFR ( Amer) 22, Est GFR ( Non-Af Amer) 18, Random Glucose 112 H, Calcium 9.7, Magnesium 1.9, Total Bilirubin 0.7, AST 32, ALT 28, Alkaline Phosphatase 52, Lactate Dehydrogenase 400, Total Creatine Kinase 127, Troponin I 0.04 D, Total Protein 7.2, Albumin 4.3, Globulin 2.9, Albumin/Globulin Ratio 1.5 12/16/16 18:56: WBC 6.5, RBC 4.31, Hgb 11.9 L, Hct 34.3 L, MCV 79.6 L, MCH 27.6 , MCHC 34.7, RDW 14.0, Plt Count 312, MPV 9.9, Gran % 63.4, Lymph % (Auto) 29.1 , [place] % (Auto) 5.7, Eos % (Auto) 1.2 L, Baso % (Auto) 0.6, Gran # 4.12, Lymph # 1.9, [place] # 0.4, Eos # 0.1, Baso # 0.04 I have reviewed the lab results: Yes - RAD Interpretation Radiology Orders: 12/16/16 19:16 Brain [HEAD W/O CONTRAST] [CT] Stat CHEST ONE VIEW [RAD] Stat - EKG Interpretation EKG Interpretation (Text): 12/16/16 20:39 NSR @ 69 with nonspecific T wave changes. Normal intervals and normal axis. Interpreted by ED Physician: Yes Type: 12 lead EKG Comparison: Different from prev. EKG (12/06/16) - Medication Orders Current Medication Orders: Discontinued Medications Sodium Chloride (Sodium Chloride 0.9%) 1,000 mls @ 999 mls/hr IV .Q1H1M STA Stop: 12/16/16 20:15 Last Admin: 12/16/16 19:23 Dose: 999 mls/hr - Scribe Statement The provider has reviewed the documentation as recorded by the Scribe Dennis Rawls Provider Scribe Attestation: All medical record entries made by the Scribe were at my direction and personally dictated by me. I have reviewed the chart and agree that the record accurately reflects my personal performance of the history, physical exam, medical decision making, and the department course for this patient. I have also personally directed, reviewed, and agree with the discharge instructions and disposition. Disposition/Present on Arrival - Present on Arrival Any Indicators Present on Arrival: No History of DVT/PE: No History of Uncontrolled Diabetes: No Urinary Catheter: No History of Decub. Ulcer: No History Surgical Site Infection Following: None - Disposition Have Diagnosis and Disposition been Completed?: Yes Diagnosis: Syncope, Hypokalemia, Renal insufficiency Disposition: HOSPITALIZED Disposition Time: 20:30 Patient Plan: Admission, Observation, Telemetry Condition: FAIR Discharge Instructions (ExitCare): Syncope (ED)
[2016-12-16 19:22] LABS: ADD MANUAL DIFF? NO
[2016-12-16 19:26] LABS: BASO # 0.04 K/mm3 (0.0-2.0); BASO % 0.6 % (0.0-3.0); EOS # 0.1 (0.0-0.7); EOS % 1.2 % (1.5-5.0); GRAN # 4.12 (1.4-6.5); GRAN % 63.4 % (50.0-68.0); HEMATOCRIT 34.3 % (36.0-48.0); LYMPH # 1.9 (1.2-3.4); LYMPH % 29.1 % (22.0-35.0); MEAN CELL VOLUME 79.6 fL (80.0-105.0); MEAN CORPUSCULAR HEMOGLOBIN 27.6 pg (25.0-35.0); MEAN CORPUSCULAR HGB CONC 34.7 g/dl (31.0-37.0); MEAN PLATELET VOLUME 9.9 fl (7.0-11.0); MONO # 0.4 (0.1-0.6); MONO % 5.7 % (1.0-6.0); PLATELET COUNT 312 10^3/uL (120.0-450.0); WHITE BLOOD COUNT 6.5 10^3/ul (4.5-11.0)
[2016-12-16 19:36] LABS: ALB/GLOB RATIO 1.5 (1.1-1.8); BILIRUBIN,TOTAL 0.7 mg/dL (0.2-1.3); CALCIUM 9.7 mg/dL (8.4-10.5); MAGNESIUM 1.9 mg/dL (1.7-2.2); POTASSIUM 3.1 mmol/L (3.6-5.0); TOTAL PROTEIN 7.2 g/dL (5.8-8.3)
[2016-12-16 19:47] LABS: INR 0.99 (0.93-1.08); TROPONIN I 0.04 ng/mL
[2016-12-16] MEDS ORDERED: Potassium Chloride 40 mEq/30 ml LIQ UD PO STA (20:40)
[2016-12-16 20:58] LABS: PH,URINE 6.5 (4.7-8.0); URINE BILIRUBIN NEGATIVE (NEGATIVE); URINE BLOOD NEGATIVE (NEGATIVE); URINE GLUCOSE (UA) NEGATIVE (NEGATIVE); URINE KETONE NEGATIVE (NEGATIVE); URINE LEUKOCYTE ESTERASE SMALL Leu/uL (NEGATIVE); URINE PROTEIN NEGATIVE mg/dL (<30 mg/dL); URINE UROBILINOGEN 0.2 E.U./dL (<1 E.U./dL)
[2016-12-16 21:00] LABS: URINE APPEARANCE CLEAR (CLEAR); URINE COLOR STRAW (YELLOW)
[2016-12-16 21:08] LABS: URINE BACTERIA FEW (NEG); URINE EPITHELIAL CELLS 0 - 2 /hpf (0-5); URINE RBC 0 - 2 /hpf (0-2); URINE WBC 0 - 2 /hpf (0-6)
--- NOTE | 2016-12-17 02:15 | CT ---
PROCEDURE: CT HEAD WITHOUT CONTRAST. HISTORY: syncope COMPARISON: 12/05/2016 TECHNIQUE: Axial computed tomography images were obtained through the head/brain without intravenous contrast. Radiation dose: Total exam DLP = 774 mGy-cm. This CT exam was performed using one or more of the following dose reduction techniques: Automated exposure control, adjustment of the mA and/or kV according to patient size, and/or use of iterative reconstruction technique. FINDINGS: HEMORRHAGE: No intracranial hemorrhage. BRAIN: No mass effect or edema. Stable mild diffuse cerebral cortical atrophy and mild small vessel changes. No evidence of recent infarct. No new cortical effacement. VENTRICLES: Unremarkable. No hydrocephalus. CALVARIUM: Unremarkable. PARANASAL SINUSES: Unremarkable as visualized. No significant inflammatory changes. MASTOID AIR CELLS: Unremarkable as visualized. No inflammatory changes. OTHER FINDINGS: None. IMPRESSION: No evidence of recent infarct or intracranial hemorrhage. Stable mild age related changes. This agrees with preliminary report.
[2016-12-17 02:33] VITALS: RESP 20; BMI 21.1
[2016-12-17 07:13] VITALS: O2SAT 98
[2016-12-17 08:55] LABS: ALB/GLOB RATIO 1.4 (1.1-1.8); BILIRUBIN,TOTAL 1.1 mg/dL (0.2-1.3); CALCIUM 9.1 mg/dL (8.4-10.5); MAGNESIUM 1.9 mg/dL (1.7-2.2); PHOSPHOROUS 3.5 mg/dL (2.5-4.5); POTASSIUM 3.3 mmol/L (3.6-5.0); TOTAL PROTEIN 6.7 g/dL (5.8-8.3)
[2016-12-17] MEDS ORDERED: Sodium Chloride 0.9% 1,000 ML IV SCH ×2 (09:00→10:06)
[2016-12-17] MEDS ORDERED: Potassium Chloride 20 mEq ER Tab PO ONE (10:01)
--- NOTE | 2016-12-17 10:52 | HP ---
CHIEF COMPLAINT AND HISTORY OF PRESENT ILLNESS: This is a 71-year-old female who is coming into the hospital because of dizziness. She said that she was lightheaded and she had a fall. She denies any loss of consciousness. She says she has been taking diuretics of Lasix at home. She had tried to w manny up in the middle of the night to go the bathroom and felt that she was going to pass out. The pa yoly says that she has been having episodes of dizziness. She fell, but did not hit her head. She denies any chest pain, no visual changes, no headaches, no nausea, no vomiting, no abdominal pain, no dysuria or frequency, no nocturia. REVIEW OF SYSTEMS: All other review of symptoms is within normal limits except as mentioned. ALLERGIES: No known drug allergies. HOME MEDICATIONS: Hydralazine, metoprolol, pravastatin, Lasix, losartan/hydrochlorothiazide. PAST MEDICAL HISTORY: Hypertension, gastroesophageal reflux, UTIs. FAMILY HISTORY: Noncontributory. PAST SURGICAL HISTORY: Hysterectomy. PHYSICAL EXAMINATION: VITAL SIGNS: Temperature is 98.7, pulse is 61, blood pressure 122/54, respirations 20, O2 saturation 98%, height is 5 feet 7, weight is 154 pounds, BMI is 24. GENERAL: Patient lying in bed, flat, and in no apparent distress. HEAD AND NECK EXAM: Atraumatic, normocephalic. Conjunctivae are pink. Throat clear and mouth with moist mucosa. Oropharynx benign. EYES: Extraocular movements are intact. PERRLA. NECK: Supple. No JVD, thyromegaly, or adenopathy. No bruits. HEART: S1 and S2 regular rate and rhythm. No murmurs, rubs, or gallops. LUNGS: Clear to auscultation bilaterally. No wheezing rales or rhonchi appreciated. No retraction s on exam. ABDOMEN: Soft, nontender, nondistended. Bowel sounds are positive in all quadrants. No rebound. No hepatosplenomegaly. EXTREMITIES: No cyanosis, clubbing, or edema. NEURO: No facial asymmetry, tongue is midline, no uvula deviation. Power is 5/5 in upper extremity and 5/5 in lower extremity. Sensation is normal in upper extremity and lower extremity. PSYCH: Awake, alert, oriented x3. No anxiety or depression symptoms. Good insight. Normal affec t. : No CVA tenderness VASCULAR: 2+ pulses in carotid and pedal pulses. SKIN: No erythema or abnormal nodules noted. SPINE: Normal curvature. LYMPHADENOPATHY: No anterior cervical or posterior cervical adenopathy. No inguinal adenopathy. LABORATORY DATA: White count is 6.5, hemoglobin 11.9, platelet count is 312. Chemistry shows sodium 132, potassium is 3.1, creatinine is 2.6. The patient's baseline creatinine is 0.9, which was about 2 weeks ago. Urine shows blood is negative, nitrites are negative. CT of the brain shows no significant abnormalities. EKG shows sinus rhythm at [address] changes. Chest x-ray shows no infiltrates. ASSESSMENT: 1. Dizziness secondary to acute kidney injury. 2. Acute kidney injury secondary to prerenal causes with Lasix. 3. Hypokalemia. 4. Gastroesophageal reflux disease. 5. Hypertension. PLAN: The patient is currently on aspirin. She is on metoprolol. This will be continued. She was given IV fluids. I will hold her diuretic therapy. She is on a heart healthy diet. She is going to be evaluated by physical therapy. I will discontinue telemetry. I believe this is all from her diu retic therapy causing her to be dizzy. The elevated creatinine, she will continue with IV fluids and I will repeat her blood work. Daljit Carney MD cc: [id number] TT: 12/17/2016 10:51:47 [place]
--- NOTE | 2016-12-17 10:54 | RAD ---
PROCEDURE: CHEST RADIOGRAPH, 1 VIEW HISTORY: syncope COMPARISON: 12/05/2016 FINDINGS: LUNGS: Clear. PLEURA: No pneumothorax or pleural fluid seen. CARDIOVASCULAR: Normal. OSSEOUS STRUCTURES: No significant abnormalities. VISUALIZED UPPER ABDOMEN: Normal. OTHER FINDINGS: None. IMPRESSION: No active disease.
[2016-12-17 14:14] VITALS: BP 121/63; PULSE 64; TEMP 98.4
--- NOTE | 2016-12-17 18:21 | CARD ---
APPROVED REPORT EKG Measurement Heart [id number] <Conclusion> Normal sinus rhythm Incomplete right bundle branch block Nonspecific T wave abnormality Abnormal ECG
--- NOTE | 2017-02-17 16:01 | DS ---
The patient was discharged home. Please see the note dictated on 12/17/2016 for further details. Daljit Carney MD
== END 2016-12-17 16:50 | disposition home or self-care (01) ==
LOC: ED 18:12 → ERH 20:17 → INTOOBSV 20:17 → ERH 12-17 00:22 → 2RNO 12-17 01:23
PROVIDERS: ADMIT Internal Medicine Nephrology; ATTEND Internal Medicine Nephrology
DX: N17.9 Acute kidney failure, unspecified (principal); R42 Dizziness and giddiness; R55 Syncope and collapse; E87.6 Hypokalemia; K21.9 Gastro-esophageal reflux disease without esophagitis; I10 Essential (primary) hypertension
CPT/HCPCS: 36415; 70450; 71010; 80053; 81001; 82550; 83615; 83735; 84100; 84484; 85025; 85610; 85730; 87086; 87181; 93005; 96360; 99285; G0378; J3480; J7040

== ENCOUNTER 2017-01-22 10:35 | Emergency (ER) | payer MEDICARE, OTHER ==
[2017-01-22 11:05] VITALS: RESP 18; TEMP 98.1
--- NOTE | 2017-01-22 11:25 | ED PDOC ---
Arrival/HPI - General Historian: Patient - History of Present Illness Time/Duration: 24 hours Symptom Onset: Sudden Symptom Course: Unchanged Context: Home - General Time Seen by Provider: 01/22/17 11:01 - History of Present Illness Narrative History of Present Illness (Text): 01/22/17 11:36 71 yo female with PMH HTN, GERD, and arthritis presents to ED with neck pain. Patient states that the pain started yesterday. The pain is located on the right side, and patient states every time she turns her neck to the right the pain increases. Patient states she was told she had arthritis of neck and was on medication previously, however she stopped taking it when she felt better. She denies fever, chills, focal weakness, chest pain, abd pain, n/v. PMD: Dr. Hedrick ([facility]) Past Medical History - Provider Review Nursing Documentation Reviewed: Yes - Infectious Disease Hx of Infectious Diseases: None - Tetanus Immunization Tetanus Immunization: Unknown - Cardiac Hx Cardiac Disorders: Yes Hx Hypertension: Yes - Pulmonary Hx Respiratory Disorders: No - Neurological Hx Neurological Disorder: Yes Hx Dizziness: Yes (03/27/16) - HEENT Hx HEENT Disorder: No (wears glasses) - Renal Hx Renal Disorder: No - Endocrine/Metabolic Hx Endocrine Disorders: No - Hematological/Oncological Hx Blood Disorders: No - Integumentary Other/Comment: right forearm dark skin discoloration bi c/o pain/itch - Musculoskeletal/Rheumatological Hx Falls: Yes - Gastrointestinal Hx Gastrointestinal Disorders: Yes Hx Gastroesophageal Reflux: Yes - Genitourinary/Gynecological Hx Genitourinary Disorders: Yes - Psychiatric Hx Substance Use: No - Surgical History Hx Hysterectomy: Yes - Anesthesia Hx Anesthesia: Yes - Suicidal Assessment Feels Threatened In Home Enviroment: No Family/Social History - Physician Review Nursing Documentation Reviewed: Yes Family/Social History: No Known Family HX Smoking Status: Former Smoker Hx Alcohol Use: No Hx Substance Use: No Hx Substance Use Treatment: No Allergies/Home Meds Allergies/Adverse Reactions: Allergies No Known Allergies Allergy (Verified 12/16/16 18:20) Home Medications: Home Meds Medication Instructions Recorded Confirmed Pravastatin Sodium [Pravachol] 40 mg PO DAILY 12/05/16 12/16/16 Review of Systems - Review of Systems Constitutional: Normal. absent: Fatigue, Fevers Eyes: Normal. absent: Vision Changes ENT: Normal. absent: Sore Throat, Rhinorrhea Respiratory: Normal. absent: SOB, Cough, Wheezing Cardiovascular: Normal. absent: Chest Pain, Palpitations, Edema, Syncope Gastrointestinal: Normal. absent: Abdominal Pain, Constipation, Diarrhea, Nausea, Vomiting Genitourinary Female: Normal. absent: Dysuria, Frequency, Hematuria Musculoskeletal: Arthralgias, Neck Pain. absent: Back Pain, Myalgias Skin: Normal. absent: Rash, Pruritis Neurological: Normal. absent: Headache, Dizziness Endocrine: Normal. absent: Diaphoresis Hemo/Lymphatic: Normal. absent: Easy Bleeding, Easy Bruising Psychiatric: Normal Physical Exam Vital Signs Reviewed: Yes Temperature: Afebrile Pulse: Regular Respiratory Rate: Normal Appearance: Positive for: Well-Appearing, Non-Toxic, Comfortable Pain Distress: None Mental Status: Positive for: Alert and Oriented X 3 - Systems Exam Head: Present: Atraumatic, Normocephalic. No: Tenderness Pupils: Present: PERRL Extroacular Muscles: Present: EOMI Conjunctiva: Present: Normal Mouth: Present: Moist Mucous Membranes Neck: Present: Paraspinal Tenderness. No: Normal Range of Motion, MIDLINE TENDERNESS Respiratory/Chest: Present: Clear to Auscultation, Good Air Exchange. No: Respiratory Distress, Accessory Muscle Use, Wheezes, Rhonchi, Tachypneic Cardiovascular: Present: Regular Rate and Rhythm, Normal S1, S2. No: Murmurs, Tachycardic, Bradycardic Abdomen: Present: Normal Bowel Sounds. No: Tenderness, Distention, Peritoneal Signs Back: Present: Normal Inspection Upper Extremity: Present: Normal Inspection. No: Cyanosis, Edema Lower Extremity: Present: Normal Inspection. No: Edema, CALF TENDERNESS, Tenderness, Swelling Neurological: Present: GCS=15, CN II-XII Intact, Speech Normal. No: Motor Func Grossly Intact Skin: Present: Warm, Dry, Normal Color. No: Rashes, Diaphoretic Psychiatric: Present: Alert, Oriented x 3, Normal Insight, Normal Concentration Medical Decision Making ED Course and Treatment: 01/22/17 11:57 Impression: 71 yo female with PMH HTN, GERD, adn arthritis presents to ED with neck pain. Differential Diagnosis included but are not limited to: - arthritis, muscle strain Plan: - toradol - flexeril -- Reassess and disposition Progress Notes: 01/22/17 12:32 - patient is resting comfortably. - Discussed with patient the importance of following up with PMD. She understands discharge instructions to follow up with PMD in 1-2 days. (Kita Rosado) pt seen with resident. pt with known arthritis, reports exacerbation of neck pain, she reports is consistent with her arthritis. pt well appearing. mild pain with rom. no meningmus, pt smiling, requesting pain meds, and advise outpt follow up . no other complaints (Gabriel Ramesh) - Medication Orders Current Medication Orders: Discontinued Medications Cyclobenzaprine HCl (Flexeril) 10 mg PO STAT STA Stop: 01/22/17 11:28 Last Admin: 01/22/17 12:11 Dose: 10 mg Ketorolac Tromethamine (Toradol) 30 mg IM STAT STA Stop: 01/22/17 11:28 Last Admin: 01/22/17 12:11 Dose: 30 mg Disposition/Present on Arrival - Present on Arrival Any Indicators Present on Arrival: No History of DVT/PE: No History of Uncontrolled Diabetes: No Urinary Catheter: No History Surgical Site Infection Following: None - Disposition Have Diagnosis and Disposition been Completed?: Yes Disposition Time: 12:00 Patient Plan: Discharge - Disposition Diagnosis: Torticollis, Neck pain Disposition: HOME/ ROUTINE Patient Problems: Current Active Problems Problem Status Onset Torticollis Acute Neck pain Acute Condition: STABLE Discharge Instructions (ExitCare): Cervical Strain (GEN), Muscle Spasm (ED), Arthritis (ED) Additional Instructions: please follow up with your doctor. return to er with worsening symptoms or concerns. Prescriptions: Cyclobenzaprine [Cyclobenzaprine HCl] 10 mg PO TID PRN #15 tab PRN Reason: Pain, Severe (8-10) Lidocaine 5% [Lidoderm] 1 patch TOP BID PRN #4 patch PRN Reason: Pain, Severe (8-10) Naproxen 500 mg PO Q12 PRN #15 tab PRN Reason: Pain, Severe (8-10) Referrals: Bhavik Hedrick MD [Primary Care Provider] - Follow up with primary
[2017-01-22 11:33] VITALS: BMI 18.8
[2017-01-22 11:58] VITALS: O2SAT 100
[2017-01-22 12:55] VITALS: BP 172/84; PULSE 65
== END 2017-01-22 12:55 | disposition home or self-care (01) ==
LOC: ED 10:35
DX: M43.6 Torticollis (principal); M54.2 Cervicalgia
CPT/HCPCS: 96372; 99284; J1885

== ENCOUNTER 2018-04-21 08:10 | Observation (INO) | payer MEDICARE, OTHER ==
[2018-04-21 08:40] VITALS: BMI 19.0
--- NOTE | 2018-04-21 09:07 | ED PDOC ---
Arrival/HPI - General Chief Complaint: Dizziness/Lightheaded Time Seen by Provider: 04/21/18 08:41 Historian: Patient - History of Present Illness Narrative History of Present Illness (Text): 04/21/18 09:06 72 y/o F w/ PMH of renal insufficiency, hypertension, GERD, and arthritis presenting to the emergency department complaining of constant dizziness for the past 6 days associated with some headaches and loss of appetite. Patient reports she attempted to ambulate to the bathroom when she felt dizzy and fell. Patient is unable to walk without assistance. Patient reports similar symptoms in the past. Patient denies any injuries/pain, fever, chills, chest pain, shortness of breath, nausea, vomiting, diarrhea, urinary symptoms, back pain, neck pain, loss of consciousness, or any other complaints/injuries. PMD: Dr. Hedrick Time/Duration: Other (6 days) Symptom Onset: Gradual Symptom Course: Unchanged Activities at Onset: Rest Context: Standing, Walking, Home Past Medical History - Provider Review Nursing Documentation Reviewed: Yes - Travel History Have you recently traveled outside [place] w/in the past 3 mons?: No - Infectious Disease Hx of Infectious Diseases: None - Tetanus Immunization Tetanus Immunization: Unknown - Cardiac Hx Cardiac Disorders: Yes Hx Hypertension: Yes - Pulmonary Hx Respiratory Disorders: No - Neurological Hx Neurological Disorder: Yes Hx Dizziness: Yes (03/27/16) - HEENT Hx HEENT Disorder: No (wears glasses) - Renal Hx Renal Disorder: No - Endocrine/Metabolic Hx Endocrine Disorders: No - Hematological/Oncological Hx Blood Disorders: No - Integumentary Other/Comment: right forearm dark skin discoloration bi c/o pain/itch - Musculoskeletal/Rheumatological Hx Falls: Yes - Gastrointestinal Hx Gastrointestinal Disorders: Yes Hx Gastroesophageal Reflux: Yes - Genitourinary/Gynecological Hx Genitourinary Disorders: Yes - Psychiatric Hx Psychophysiologic Disorder: Yes Hx Anxiety: Yes Hx Substance Use: No - Surgical History Hx Hysterectomy: Yes - Anesthesia Hx Anesthesia: Yes - Suicidal Assessment Feels Threatened In Home Enviroment: No Family/Social History - Physician Review Nursing Documentation Reviewed: Yes Family/Social History: No Known Family HX Smoking Status: Former Smoker Hx Alcohol Use: No Hx Substance Use: No Hx Substance Use Treatment: No Allergies/Home Meds Allergies/Adverse Reactions: Allergies No Known Allergies Allergy (Verified 04/21/18 08:38) Home Medications: Home Meds Medication Instructions Recorded Confirmed Pravastatin Sodium [Pravachol] 40 mg PO DAILY 12/05/16 04/21/18 Donepezil HCl [Aricept] 5 mg PO DAILY 04/21/18 04/21/18 Furosemide [Lasix] 40 mg PO DAILY 04/21/18 04/21/18 Losartan/Hydrochlorothiazide 1 each PO DAILY 04/21/18 04/21/18 [Losartan-Hctz 100-12.5 mg Tab] Metoprolol Tartrate [Lopressor] 100 mg PO DAILY 04/21/18 04/21/18 Review of Systems - Physician Review All systems were reviewed & negative as marked: Yes - Review of Systems Constitutional: absent: Fevers, Other (Chills) Respiratory: absent: SOB Gastrointestinal: Appetite Changes (loss of appetite). absent: Diarrhea, Nausea, Vomiting Genitourinary Female: absent: Dysuria, Frequency, Hematuria Musculoskeletal: absent: Back Pain, Neck Pain Neurological: Headache, Dizziness Physical Exam Vital Signs Reviewed: Yes Vital Signs Temp Pulse Resp BP Pulse Ox 04/21/18 08:38 98.2 F 72 18 99/60 L 100 Temperature: Afebrile Blood Pressure: Normal Pulse: Regular Respiratory Rate: Normal Appearance: Positive for: Well-Appearing, Non-Toxic, Comfortable Pain Distress: None Mental Status: Positive for: Alert and Oriented X 3 - Systems Exam Head: Present: Atraumatic, Normocephalic Pupils: Present: PERRL Extroacular Muscles: Present: EOMI Conjunctiva: Present: Normal Mouth: Present: Moist Mucous Membranes Neck: Present: Normal Range of Motion Respiratory/Chest: Present: Clear to Auscultation, Good Air Exchange. No: Respiratory Distress, Accessory Muscle Use Cardiovascular: Present: Regular Rate and Rhythm, Normal S1, S2. No: Murmurs Abdomen: No: Tenderness, Distention, Peritoneal Signs Back: Present: Normal Inspection Upper Extremity: Present: Normal Inspection, Normal ROM. No: Cyanosis, Edema Lower Extremity: Present: Normal Inspection, Normal ROM. No: Edema Neurological: Present: GCS=15, CN II-XII Intact, Speech Normal, Motor Func Grossly Intact, Normal Sensory Function, Normal Cerebellar Funct (normal finger to nose), Norm Deep Tendon Reflexes, Memory Normal, Normal 2Pt Descrimination Skin: Present: Warm, Dry, Normal Color. No: Rashes Psychiatric: Present: Alert, Oriented x 3, Normal Insight, Normal Concentration Medical Decision Making ED Course and Treatment: 04/21/18 09:06 Impression: 72 year old female presents complaining of constant dizziness for the past 6 days associated with some headaches and loss of appetite Differential Diagnosis included but are not limited to: TIA/CVA Sepsis Toxic Metabolic Encephalopathy Plan: -- CT C-Spine -- CTH -- EKG -- Labs -- CXR -- Antivert -- IV Fluids -- Urinalysis -- Reassess and disposition Prior Visits: Notes and results from previous visits were reviewed. Patient was last seen in the emergency department on 12/16/16 presents complaining of dizziness all day and syncopal episode. Patient was admitted for syncope, hypokalemia, and renal insufficiency. Progress Notes: 04/21/18 09:55 Labs reviewed. Hypokalemia noted and will replete. Pending CT Imaging. 04/21/18 10:39 CTH negative for intracranial bleeding as well as calvarial fractures. CT C-Spin e negative for fractures or subluxation. Findings discussed with patient and family who after shared decision making, decide to stay for observation. Case discussed with Dr. Carney who is aware and agrees with the plan and accepts patient onto his service. - Lab Interpretations I have reviewed the lab results: Yes - RAD Interpretation Narrative RAD Interpretations (Text): PROCEDURE: CT HEAD WITHOUT CONTRAST Dictator : Chiqui Urbano MD Report Date : 04/21/2018 10:09:34 IMPRESSION: Mild nonspecific white matter changes. PROCEDURE: Chest X-ray Dictator : Chiqui Urbano MD Report Date : 04/21/2018 10:18:14 IMPRESSION: No focal consolidation, significant pleural effusion, or definite pneumothorax identified. Prominent mediastinum may be related to aortic ectasia/tortuosity; alternatives including adenopathy cannot be excluded. If indicated, CT of the chest with IV contrast may be considered. PROCEDURE: CT Cervical Spine without contrast Dictator : Zach Bach MD Report Date : 04/21/2018 10:29:37 IMPRESSION: Straightened cervical curvature without fracture or spondylolisthesis i dentified. Multilevel degenerative disc disease and facet arthropathy result in variable multilevel spinal stenosis including central canal and neural foramina under relatively diffuse basis. Findings appear worst at C4-5 where a moderate central canal stenosis results with severe right and moderate left degenerative neural foraminal stenoses. Additional details noted above. Crime Prevention Worker: Radiologist - EKG Interpretation EKG Interpretation (Text): 04/21/18 09:25 EKG shows NSR at 65 BPM with incomplete RBBB, T-wave inversions diffusely, prolong QT intervals. Interpreted by me. Interpreted by ED Physician: Yes Type: 12 lead EKG - Scribe Statement The provider has reviewed the documentation as recorded by the Marlys Blevins Provider Scribe Attestation: All medical record entries made by the Marlys were at my direction and personally dictated by me. I have reviewed the chart and agree that the record accurately reflects my personal performance of the history, physical exam, medical decision making, and the department course for this patient. I have also personally directed, reviewed, and agree with the discharge instructions and disposition. Disposition/Present on Arrival - Present on Arrival Any Indicators Present on Arrival: No History of DVT/PE: No History of Uncontrolled Diabetes: No Urinary Catheter: No History of Decub. Ulcer: No History Surgical Site Infection Following: None - Disposition Have Diagnosis and Disposition been Completed?: Yes Diagnosis: Syncope, Dizziness Disposition: HOSPITALIZED Disposition Time: 11:14 Patient Plan: Observation Condition: STABLE
[2018-04-21] MEDS ORDERED: Sodium Chloride 0.9% 1,000 ML IV STA (09:08)
[2018-04-21 09:40] LABS: BASO # 0.02 K/mm3 (0.0-2.0); BASO % 0.3 % (0.0-3.0); EOS # 0.1 (0.0-0.7); GRAN # 5.56 (1.4-6.5); GRAN % 69.6 % (50.0-68.0); HEMOGLOBIN 14.6 g/dL (12.0-16.0); LYMPH # 1.9 (1.2-3.4); LYMPH % 23.3 % (22.0-35.0); MEAN CELL VOLUME 78.7 fl (80.0-105.0); MEAN CORPUSCULAR HEMOGLOBIN 27.2 pg (25.0-35.0); MEAN CORPUSCULAR HGB CONC 34.6 g/dl (31.0-37.0); MEAN PLATELET VOLUME 9.6 fl (7.0-11.0); MONO # 0.5 (0.1-0.6); MONO % 5.8 % (1.0-6.0); RBC 5.36 10^6/uL (3.5-6.1); RED CELL DISTRIBUTION WIDTH 13.6 % (11.5-14.5)
[2018-04-21 09:50] LABS: ALB/GLOB RATIO 1.4 (1.1-1.8); ALBUMIN 4.7 g/dL (3.0-4.8); CALCIUM 9.8 mg/dL (8.4-10.5)
[2018-04-21] MEDS ORDERED: Potassium Chloride 40 mEq/30 ml LIQ UD PO STA (09:52)
[2018-04-21 10:02] LABS: TROPONIN I 0.06 ng/mL
--- NOTE | 2018-04-21 10:11 | CT ---
Date of service: 04/21/2018 PROCEDURE: CT HEAD WITHOUT CONTRAST. HISTORY: dizziness COMPARISON: Noncontrast head CT performed 12/16/16 TECHNIQUE: Axial computed tomography images were obtained through the head/brain without intravenous contrast. Radiation dose: Total exam DLP = 824.89 mGy-cm. This CT exam was performed using one or more of the following dose reduction techniques: Automated exposure control, adjustment of the mA and/or kV according to patient size, and/or use of iterative reconstruction technique. FINDINGS: HEMORRHAGE: No intracranial hemorrhage. BRAIN: Diffuse atrophy with prominence of the ventricles and sulci noted. No mass effect or edema. Scattered periventricular and subcortical white matter hypodensities, which are nonspecific, but often seen with chronic microvascular ischemic disease. Please note that MRI with diffusion imaging is more sensitive in the detection of acute ischemic event. VENTRICLES: No hydrocephalus. CALVARIUM: Unremarkable. PARANASAL SINUSES: Unremarkable as visualized. No significant inflammatory changes. MASTOID AIR CELLS: Unremarkable as visualized. No inflammatory changes. OTHER FINDINGS: Partial opacification of the external auditory canals, likely cerumen. IMPRESSION: Mild nonspecific white matter changes.
--- NOTE | 2018-04-21 10:19 | RAD ---
HISTORY: dizziness w/ fall COMPARISON: Chest x-ray performed 12/16/16 TECHNIQUE: Chest, one view. FINDINGS: LUNGS: No focal consolidation. Please note that chest x-ray has limited sensitivity for the detection of pulmonary masses. PLEURA: No significant pleural effusion identified. No definite pneumothorax . CARDIOVASCULAR: Heart size appears within normal limits. Prominent mediastinum may be related to aortic ectasia/tortuosity; alternatives including adenopathy cannot be excluded. OSSEOUS STRUCTURES: Degenerative changes. VISUALIZED UPPER ABDOMEN: Unremarkable. OTHER FINDINGS: None. IMPRESSION: No focal consolidation, significant pleural effusion, or definite pneumothorax identified. Prominent mediastinum may be related to aortic ectasia/tortuosity; alternatives including adenopathy cannot be excluded. If indicated, CT of the chest with IV contrast may be considered.
--- NOTE | 2018-04-21 10:31 | CT ---
Date of service: 04/21/2018 PROCEDURE: CT Cervical Spine without contrast HISTORY: fall COMPARISON: None available. TECHNIQUE: Axial computed tomography images were obtained of the cervical spine without the use of intravenous contrast. Coronal and sagittal reformatted images were created and reviewed. Radiation dose: Total exam DLP = 425.36 mGy-cm. This CT exam was performed using one or more of the following dose reduction techniques: Automated exposure control, adjustment of the mA and/or kV according to patient size, and/or use of iterative reconstruction technique. FINDINGS: VERTEBRAE: Straightened curvature without definite fracture or spondylolisthesis identified. C1-2 articulation is degenerated but intact otherwise. The craniocervical junction is unremarkable appearing. Multilevel cervical spondylosis appreciated as well as facet arthropathy. No destructive bony lesion appreciable. A small bone island is seen at the right side of the C7 vertebral body. Prevertebral paraspinal soft tissues appear diffusely unremarkable as imaged. Incidental note is made of right posterior triangle lymphadenopathy in the neck including a 2.0 x 1.0 cm lymph node with only shotty lymph nodes are seen at the left posterior triangle. DISCS/SPINAL CANAL/NEURAL FORAMINA: At C2-3, mild to moderate right degenerative neural foraminal stenosis appreciated due to facet joint and uncovertebral arthrosis. Minimal disc bulging identified. At C3-4, a moderate disc osteophyte complex results in mild central canal stenosis with moderate to severe right and mild left degenerative neural foraminal stenosis appreciated. At C4-5, an additional disc osteophyte complex results in moderate degenerative central canal stenosis with severe right and moderate left degenerative neural foraminal stenoses present. At C5-6, a circumferential disc osteophyte complex is appreciated resulting in moderate central canal stenosis and moderate right but moderate to severe left neural foraminal stenosis. At C6-7, no significant central canal stenosis though a circumferential disc osteophyte complex is appreciated. Mild bilateral degenerative neural foraminal stenoses are identified. C7-T1 is unremarkable. No gross disc herniation throughout the exam however MRI is more sensitive for evaluation of the intervertebral disc and can be performed if clinically warranted. OTHER FINDINGS: None. IMPRESSION: Straightened cervical curvature without fracture or spondylolisthesis identified. Multilevel degenerative disc disease and facet arthropathy result in variable multilevel spinal stenosis including central canal and neural foramina under relatively diffuse basis. Findings appear worst at C4-5 where a moderate central canal stenosis results with severe right and moderate left degenerative neural foraminal stenoses. Additional details noted above.
[2018-04-21 12:08] LABS: URINE BILIRUBIN NEGATIVE (NEGATIVE); URINE BLOOD NEGATIVE (NEGATIVE); URINE GLUCOSE (UA) NEGATIVE (NEGATIVE); URINE LEUKOCYTE ESTERASE MODERATE Leu/uL (NEGATIVE); URINE PROTEIN NEGATIVE mg/dL (<30 mg/dL); URINE UROBILINOGEN 0.2 E.U./dL (<1 E.U./dL)
[2018-04-21 12:09] LABS: URINE APPEARANCE CLEAR (CLEAR); URINE COLOR YELLOW (YELLOW)
[2018-04-21 12:14] LABS: URINE BACTERIA MANY (NEG); URINE RBC 0 - 2 /hpf (0-2)
[2018-04-21 12:15] LABS: URINE FINE GRANULAR CAST 0 - 2 /hpf (0-2)
--- NOTE | 2018-04-21 13:49 | CP.PCM.HP ---
<TrishaJenna - Last Filed: 04/21/18 13:45> History of Present Illness - History of Present Illness History of Present Illness: H&P for Mira Freeman PGY3 This is a 72yo female with past medical history of HTN, HLD, arthritis, GERD, UTI, dizziness, CKD stage III who came to the ED for dizziness for several days. Patient reports that she has been feeling lightheaded especially when she gets out of bed. It has been going on and off for the past week or so. She denies having any sensation of the room spinning, vision changes, headache, nausea/vomiting/diarrhea, fever/chills, chest pain or shortness of breath. She says that she has been not eating as much lately due to decreased appetite. She denies having any urinary symptoms such a dysuria/hematuria or frequency. She denies having any episode of falling of hitting her head. In ED, patient found to have SUKHDEV and hypokalemia. Head CT did not show any acute abnormalities. Past medical history: HTN, HLD, arthritis, GERD, UTI (+ for GBS in past), CKD stage III Past surgical history: Hysterectomy Home meds: Reviewed as per MAR Allergies: NKDA Social history: Denies EtOH, drug or tobacco use. Lives with family Family history: Cancer- multiple diff kinds in family (cannot specify) PMD: Dr. Hedrick. Present on Admission - Present on Admission Any Indicators Present on Admission: No Review of Systems - Review of Systems All systems: reviewed and no additional remarkable complaints except Review of Systems: 12 point ROS reviewed as per HPI and is otherwise negative Past Patient History - Infectious Disease Hx of Infectious Diseases: None - Tetanus Immunizations Tetanus Immunization: Unknown - Past Social History Smoking Status: Former Smoker - CARDIAC Hx Cardiac Disorders: Yes Hx Hypertension: Yes - PULMONARY Hx Respiratory Disorders: No - NEUROLOGICAL Hx Neurological Disorder: Yes Hx Dizziness: Yes (03/27/16) - HEENT Hx HEENT Problems: No (wears glasses) - RENAL Hx Chronic Kidney Disease: No - ENDOCRINE/METABOLIC Hx Endocrine Disorders: No - HEMATOLOGICAL/ONCOLOGICAL Hx Blood Disorders: No - INTEGUMENTARY Other/Comment: right forearm dark skin discoloration bi c/o pain/itch - MUSCULOSKELETAL/RHEUMATOLOGICAL Hx Falls: Yes - GASTROINTESTINAL Hx Gastrointestinal Disorders: Yes Hx Gastroesophageal Reflux: Yes - GENITOURINARY/GYNECOLOGICAL Hx Genitourinary Disorders: Yes - PSYCHIATRIC Hx Psychophysiologic Disorder: Yes Hx Anxiety: Yes Hx Substance Use: No - SURGICAL HISTORY Hx Hysterectomy: Yes - ANESTHESIA Hx Anesthesia: Yes Meds Allergies/Adverse Reactions: Allergies Allergy/AdvReac Type Severity Reaction Status Date / Time No Known Allergies Allergy Verified 04/21/18 08:38 Physical Exam - Constitutional Appears: No Acute Distress - Head Exam Head Exam: ATRAUMATIC, NORMAL INSPECTION, NORMOCEPHALIC - Eye Exam Eye Exam: Normal appearance, PERRL Pupil Exam: NORMAL ACCOMODATION - ENT Exam ENT Exam: Mucous Membranes Dry - Respiratory Exam Respiratory Exam: Clear to Auscultation Bilateral, NORMAL BREATHING PATTERN. absent: Rales, Rhonchi, Wheezes - Cardiovascular Exam Cardiovascular Exam: REGULAR RHYTHM, +S1, +S2. absent: Gallop, Rubs, Systolic Murmur - GI/Abdominal Exam GI & Abdominal Exam: Normal Bowel Sounds, Soft. absent: Mass, Rebound, Rigid, Tenderness - Extremities Exam Extremities exam: Positive for: normal inspection. Negative for: calf tenderness, pedal edema - Neurological Exam Neurological exam: Alert, CN II-XII Intact, Oriented x3 - Skin Skin Exam: Dry, Warm Results - Vital Signs Recent Vital Signs: Last Vital Signs Temp 98.2 F 04/21/18 08:38 Pulse 68 04/21/18 11:45 Resp 18 04/21/18 11:45 BP 106/54 L 04/21/18 11:45 Pulse Ox 97 04/21/18 11:45 - Labs Result Diagrams: 04/21/18 09:20 04/21/18 09:20 Labs: Laboratory Results - last 24 hr 04/21/18 04/21/18 04/21/18 09:20 09:20 11:54 WBC 8.0 D RBC 5.36 Hgb 14.6 Hct 42.2 MCV 78.7 L MCH 27.2 MCHC 34.6 RDW 13.6 Plt Count 311 MPV 9.6 Gran % 69.6 H Lymph % (Auto) 23.3 [place] % (Auto) 5.8 Eos % (Auto) 1.0 L Baso % (Auto) 0.3 Gran # 5.56 Lymph # (Auto) 1.9 [place] # (Auto) 0.5 Eos # (Auto) 0.1 Baso # (Auto) 0.02 Sodium 135 Potassium 3.2 L Chloride 89 L Carbon Dioxide 31 Anion Gap 19 BUN 67 H Creatinine 2.5 H Est GFR ( Amer) 23 Est GFR (Non-Af Amer) 19 Random Glucose 108 Calcium 9.8 Magnesium 2.4 H Total Bilirubin 1.1 AST 35 ALT 16 Alkaline Phosphatase 57 Troponin I 0.06 D Total Protein 8.2 Albumin 4.7 Globulin 3.5 Albumin/Globulin Ratio 1.4 Urine Color Yellow Urine Appearance Clear Urine pH 6.0 Ur Specific [place] 1.010 Urine Protein Negative Urine Glucose (UA) Negative Urine Ketones Negative Urine Blood Negative Urine Nitrate Negative Urine Bilirubin Negative Urine Urobilinogen 0.2 Ur Leukocyte Esterase Moderate H Urine RBC 0 - 2 Urine WBC 10 - 15 Ur Epithelial Cells 4 - 5 Urine Bacteria Many Fine Granular Casts 0 - 2 Assessment & Plan - Assessment and Plan (Free Text) Assessment: This is a 72yo female with past medical history of HTN, HLD, arthritis, GERD, dizziness, CKD stage III who is admitted for 1. Dizziness - most likely secondary to dehydration with SUKHDEV 2. SUKHDEV on CKD stage III - secondary to dehydration on top of being on lasix 3. UTI 4. HTN 5. HLD 6. Arthritis Plan: Patient is on IV fluids. Will hold BP medications. Monitor I&O. U/A positive for leuk esterase and WBC. Awaiting cultures. Will start on Rocephin. Orthostatics pending. Will continue ASA, Aricept and Lipitor. Patient was a ssessed by cardiology at last admission for similar symptoms. She was hypotensive at the time as well. BP meds were titrated down. Case seen, discussed and reviewed with Dr. Rommel Rico PGY3 - Date & Time Date: 04/21/18 Time: 14:00 <Daljit Carney S - Last Filed: 04/22/18 19:35> Results - Vital Signs Recent Vital Signs: Last Vital Signs Temp 98.5 F 04/22/18 12:00 Pulse 76 04/22/18 12:00 Resp 20 04/22/18 12:00 BP 119/77 04/22/18 12:00 Pulse Ox 96 04/22/18 06:00 - Labs Result Diagrams: 04/21/18 09:20 04/22/18 05:30 Labs: Laboratory Results - last 24 hr 04/22/18 05:30 Sodium 138 Potassium 3.1 L Chloride 97 L Carbon Dioxide 32 Anion Gap 12 BUN 49 H Creatinine 1.4 H Est GFR ( Amer) 45 Est GFR (Non-Af Amer) 37 Random Glucose 105 Calcium 9.4 Magnesium 2.5 H Total Bilirubin 0.6 AST 28 ALT 24 Alkaline Phosphatase 52 Total Protein 6.6 Albumin 3.8 Globulin 2.7 Albumin/Globulin Ratio 1.4 Assessment & Plan - Assessment and Plan (Free Text) Plan: Pt seen and examined by me. I have reviewed the note by the medical care administrator. The case was discusussed and reviewed with the resident. I reviewed the medications and labs. Pt with dizziness. She may have low BP due to her medications. She will be taken off her meds and hydrated. She has a UA that is abnormal indicating UTI. Will repeat BP.
[2018-04-21] MEDS ORDERED: cefTRIAXone 1 gm 1 GM/100 ML BAG IVPB SCH (14:15)
--- NOTE | 2018-04-21 15:16 | CARD ---
APPROVED REPORT Date of service: 04/21/2018 EKG Measurement Heart [id number] HI [id number] <Conclusion> Normal sinus rhythm Incomplete right bundle branch block STTW changes c/w ischemia Prolonged QT
[2018-04-21] MEDS ORDERED: Pneumococcal 23-Valent Vaccine IM ONE (16:31)
[2018-04-21] MEDS ORDERED: Influenza Vaccine 60 mcg/0.5 mL SYR (4YR UP) IM ONE (16:31)
[2018-04-22 03:44] VITALS: RESP 20
[2018-04-22 06:44] VITALS: O2SAT 96
[2018-04-22 07:09] LABS: ALB/GLOB RATIO 1.4 (1.1-1.8); ALBUMIN 3.8 g/dL (3.0-4.8); CALCIUM 9.4 mg/dL (8.4-10.5)
[2018-04-22] MEDS ORDERED: Potassium Chloride 40 mEq/30 ml LIQ UD PO ONE (08:40)
--- NOTE | 2018-04-22 09:25 | CP.PCM.DIS ---
<Jenna Rico - Last Filed: 04/22/18 09:31> Provider - Provider Date of Admission: 04/21/18 10:48 Attending physician: Daljit Carney MD Primary care physician: Bhavik Hedrick MD Consults: Cardiology: Phani Time Spent in preparation of Discharge (in minutes): 35 Hospital Course - Lab Results Lab Results: Most Recent Lab Values WBC 8.0 10^3/ul (4.5-11.0) D 04/21/18 09:20 RBC 5.36 10^6/uL (3.5-6.1) 04/21/18 09:20 Hgb 14.6 g/dL (12.0-16.0) 04/21/18 09:20 Hct 42.2 % (36.0-48.0) 04/21/18 09:20 MCV 78.7 fl (80.0-105.0) L 04/21/18 09:20 MCH 27.2 pg (25.0-35.0) 04/21/18 09:20 MCHC 34.6 g/dl (31.0-37.0) 04/21/18 09:20 RDW 13.6 % (11.5-14.5) 04/21/18 09:20 Plt Count 311 10^3/uL (120.0-450.0) 04/21/18 09:20 MPV 9.6 fl (7.0-11.0) 04/21/18 09:20 Gran % 69.6 % (50.0-68.0) H 04/21/18 09:20 Lymph % (Auto) 23.3 % (22.0-35.0) 04/21/18 09:20 [place] % (Auto) 5.8 % (1.0-6.0) 04/21/18 09:20 Eos % (Auto) 1.0 % (1.5-5.0) L 04/21/18 09:20 Baso % (Auto) 0.3 % (0.0-3.0) 04/21/18 09:20 Gran # 5.56 (1.4-6.5) 04/21/18 09:20 Lymph # (Auto) 1.9 (1.2-3.4) 04/21/18 09:20 [place] # (Auto) 0.5 (0.1-0.6) 04/21/18 09:20 Eos # (Auto) 0.1 (0.0-0.7) 04/21/18 09:20 Baso # (Auto) 0.02 K/mm3 (0.0-2.0) 04/21/18 09:20 Sodium 138 mmol/L (132-148) 04/22/18 05:30 Potassium 3.1 mmol/L (3.6-5.0) L 04/22/18 05:30 Chloride 97 mmol/L (98-107) L 04/22/18 05:30 Carbon Dioxide 32 mmol/L (21-33) 04/22/18 05:30 Anion Gap 12 (10-20) 04/22/18 05:30 BUN 49 mg/dL (7-21) H 04/22/18 05:30 Creatinine 1.4 mg/dl (0.7-1.2) H 04/22/18 05:30 Est GFR ( Amer) 45 04/22/18 05:30 Est GFR (Non-Af Amer) 37 04/22/18 05:30 Random Glucose 105 mg/dL (70-110) 04/22/18 05:30 Calcium 9.4 mg/dL (8.4-10.5) 04/22/18 05:30 Magnesium 2.5 mg/dL (1.7-2.2) H 04/22/18 05:30 Total Bilirubin 0.6 mg/dL (0.2-1.3) 04/22/18 05:30 AST 28 U/L (14-36) 04/22/18 05:30 ALT 24 U/L (7-56) 04/22/18 05:30 Alkaline Phosphatase 52 U/L (38-126) 04/22/18 05:30 Troponin I 0.06 ng/mL D 04/21/18 09:20 Total Protein 6.6 g/dL (5.8-8.3) 04/22/18 05:30 Albumin 3.8 g/dL (3.0-4.8) 04/22/18 05:30 Globulin 2.7 gm/dL 04/22/18 05:30 Albumin/Globulin Ratio 1.4 (1.1-1.8) 04/22/18 05:30 Urine Color Yellow (YELLOW) 04/21/18 11:54 Urine Appearance Clear (CLEAR) 04/21/18 11:54 Urine pH 6.0 (4.7-8.0) 04/21/18 11:54 Ur Specific [place] 1.010 (1.005-1.035) 04/21/18 11:54 Urine Protein Negative mg/dL (<30 mg/dL) 04/21/18 11:54 Urine Glucose (UA) Negative mg/dL (NEGATIVE) 04/21/18 11:54 Urine Ketones Negative mg/dL (NEGATIVE) 04/21/18 11:54 Urine Blood Negative (NEGATIVE) 04/21/18 11:54 Urine Nitrate Negative (NEGATIVE) 04/21/18 11:54 Urine Bilirubin Negative (NEGATIVE) 04/21/18 11:54 Urine Urobilinogen 0.2 E.U./dL (<1 E.U./dL) 04/21/18 11:54 Ur Leukocyte Esterase Moderate [place]/uL (NEGATIVE) H 04/21/18 11:54 Urine RBC 0 - 2 /hpf (0-2) 04/21/18 11:54 Urine WBC 10 - 15 /hpf (0-6) 04/21/18 11:54 Ur Epithelial Cells 4 - 5 /hpf (0-5) 04/21/18 11:54 Urine Bacteria Many (NEG) 04/21/18 11:54 Fine Granular Casts 0 - 2 /hpf (0-2) 04/21/18 11:54 - Hospital Course Hospital Course: This is a 72yo female with past medical history of HTN, HLD, arthritis, GERD, dizziness, CKD stage III who is admitted for dizziness most likely secondary to hypotension and dehydration with underlying UTI. She was also found to have SUKHDEV and UTI. Patient's BP meds were help and was given IV fluids and antibiotics. She was seen by cardiology. Her kidney function is now at baseline. She will be discharged home with Augmentin BID x 5 days. I spoke with her daughter Tina. I told her that we recommend to hold her BP meds for now. She should make an appointment with Dr. Hedrick early next week to follow up and evaluate patient's BP. I also educated the patient on how not to get out of bed quickly to prevent a drop in blood pressure. Discussed discharge plan with patient. Patient verbalized understanding and agreement with discharge plan. - Date & Time of H&P Date of H&P: 04/21/18 Time of H&P: 14:00 Discharge Exam - Head Exam Head Exam: ATRAUMATIC, NORMAL INSPECTION, NORMOCEPHALIC - Eye Exam Eye Exam: Normal appearance, PERRL Pupil Exam: NORMAL ACCOMODATION, PERRL - ENT Exam ENT Exam: Mucous Membranes Moist - Respiratory Exam Respiratory Exam: Clear to PA & Lateral, NORMAL BREATHING PATTERN, UNREMARKABLE. absent: Rhonchi, Wheezes - Cardiovascular Exam Cardiovascular Exam: REGULAR RHYTHM, +S1, +S2. absent: Gallop, Rubs, Systolic Murmur - GI/Abdominal Exam GI & Abdominal Exam: Normal Bowel Sounds, Unremarkable. absent: Tenderness - Extremities Exam Extremities exam: normal inspection - Neurological Exam Neurological exam: Alert, CN II-XII Intact, Oriented x3 - Psychiatric Exam Psychiatric exam: Normal Affect, Normal Mood - Skin Skin Exam: Dry, Intact, Warm Discharge Plan - Discharge Medications Prescriptions: Amoxicillin/Potassium Clav [Augmentin 500-125 Tablet] 1 each PO BID #10 tablet - Follow Up Plan Condition: STABLE Disposition: HOME/ ROUTINE Instructions: Heart Healthy Diet, Syncope (ED) Additional Instructions: 1. Stop taking BP meds (Metoprolol, Lasix, Losartan/HCTZ) 2. Continue Aspirin, Aricept, and Lipitor 3. Finish antibiotics course 4. Follow up with Dr. Hedrick next week for further recommendations on blood pressure medication 5. Please do not get up to quickly out of bed. Sit up slowly and sit up on side of bed for a couple minutes before standing. 6. If symptoms occur again, go to the nearest emergency room. Referrals: Bhavik Hedrick MD [Primary Care Provider] - <Daljit Carney - Last Filed: 04/22/18 19:29> Provider - Provider Date of Admission: 04/21/18 10:48 Attending physician: Daljit Carney MD Primary care physician: Bhavik Hedrick MD Hospital Course - Lab Results Lab Results: Micro Results 04/21/18 Unknown Urine,Clean Catch Urine Culture - Preliminary Gram Negative [place] Most Recent Lab Values WBC 8.0 10^3/ul (4.5-11.0) D 04/21/18 09:20 RBC 5.36 10^6/uL (3.5-6.1) 04/21/18 09:20 Hgb 14.6 g/dL (12.0-16.0) 04/21/18 09:20 Hct 42.2 % (36.0-48.0) 04/21/18 09:20 MCV 78.7 fl (80.0-105.0) L 04/21/18 09:20 MCH 27.2 pg (25.0-35.0) 04/21/18 09:20 MCHC 34.6 g/dl (31.0-37.0) 04/21/18 09:20 RDW 13.6 % (11.5-14.5) 04/21/18 09:20 Plt Count 311 10^3/uL (120.0-450.0) 04/21/18 09:20 MPV 9.6 fl (7.0-11.0) 04/21/18 09:20 Gran % 69.6 % (50.0-68.0) H 04/21/18 09:20 Lymph % (Auto) 23.3 % (22.0-35.0) 04/21/18 09:20 [place] % (Auto) 5.8 % (1.0-6.0) 04/21/18 09:20 Eos % (Auto) 1.0 % (1.5-5.0) L 04/21/18 09:20 Baso % (Auto) 0.3 % (0.0-3.0) 04/21/18 09:20 Gran # 5.56 (1.4-6.5) 04/21/18 09:20 Lymph # (Auto) 1.9 (1.2-3.4) 04/21/18 09:20 [place] # (Auto) 0.5 (0.1-0.6) 04/21/18 09:20 Eos # (Auto) 0.1 (0.0-0.7) 04/21/18 09:20 Baso # (Auto) 0.02 K/mm3 (0.0-2.0) 04/21/18 09:20 Sodium 138 mmol/L (132-148) 04/22/18 05:30 Potassium 3.1 mmol/L (3.6-5.0) L 04/22/18 05:30 Chloride 97 mmol/L (98-107) L 04/22/18 05:30 Carbon Dioxide 32 mmol/L (21-33) 04/22/18 05:30 Anion Gap 12 (10-20) 04/22/18 05:30 BUN 49 mg/dL (7-21) H 04/22/18 05:30 Creatinine 1.4 mg/dl (0.7-1.2) H 04/22/18 05:30 Est GFR ( Amer) 45 04/22/18 05:30 Est GFR (Non-Af Amer) 37 04/22/18 05:30 Random Glucose 105 mg/dL (70-110) 04/22/18 05:30 Calcium 9.4 mg/dL (8.4-10.5) 04/22/18 05:30 Magnesium 2.5 mg/dL (1.7-2.2) H 04/22/18 05:30 Total Bilirubin 0.6 mg/dL (0.2-1.3) 04/22/18 05:30 AST 28 U/L (14-36) 04/22/18 05:30 ALT 24 U/L (7-56) 04/22/18 05:30 Alkaline Phosphatase 52 U/L (38-126) 04/22/18 05:30 Troponin I 0.06 ng/mL D 04/21/18 09:20 Total Protein 6.6 g/dL (5.8-8.3) 04/22/18 05:30 Albumin 3.8 g/dL (3.0-4.8) 04/22/18 05:30 Globulin 2.7 gm/dL 04/22/18 05:30 Albumin/Globulin Ratio 1.4 (1.1-1.8) 04/22/18 05:30 Urine Color Yellow (YELLOW) 04/21/18 11:54 Urine Appearance Clear (CLEAR) 04/21/18 11:54 Urine pH 6.0 (4.7-8.0) 04/21/18 11:54 Ur Specific [place] 1.010 (1.005-1.035) 04/21/18 11:54 Urine Protein Negative mg/dL (<30 mg/dL) 04/21/18 11:54 Urine Glucose (UA) Negative mg/dL (NEGATIVE) 04/21/18 11:54 Urine Ketones Negative mg/dL (NEGATIVE) 04/21/18 11:54 Urine Blood Negative (NEGATIVE) 04/21/18 11:54 Urine Nitrate Negative (NEGATIVE) 04/21/18 11:54 Urine Bilirubin Negative (NEGATIVE) 04/21/18 11:54 Urine Urobilinogen 0.2 E.U./dL (<1 E.U./dL) 04/21/18 11:54 Ur Leukocyte Esterase Moderate Edvin/uL (NEGATIVE) H 04/21/18 11:54 Urine RBC 0 - 2 /hpf (0-2) 04/21/18 11:54 Urine WBC 10 - 15 /hpf (0-6) 04/21/18 11:54 Ur Epithelial Cells 4 - 5 /hpf (0-5) 04/21/18 11:54 Urine Bacteria Many (NEG) 04/21/18 11:54 Fine Granular Casts 0 - 2 /hpf (0-2) 04/21/18 11:54 - Hospital Course Hospital Course: Pt seen and examined by me. I have reviewed the note by the medical housekeeper. The case was discusussed and reviewed with the resident. I reviewed the medications and labs. Pwas given IVF in the ER. She does not have any dizziness. She will be placed on Augmentin for a possible UTI. She has underlying CKD.
--- NOTE | 2018-04-22 09:44 | CON ---
DATE: 04/22/2018 INDICATIONS: Dizziness, fall, hypokalemia. abnormal EKG. HISTORY OF PRESENT ILLNESS: This is a 72-year-old woman admitted yesterday through the Emergency Room complaining of several days of increasing dizziness, unsteadiness with a fall at home in the bathroom, details of which are unclear. She has discomfort in her left arm, but this appears to be somewhat chronic, perhaps worse after the fall. She does not describe vertigo. There is no chest pain, shortness of breath, orthopnea, PND, palpitation, edema, claudication, fever, chills, cough, sputum production, hemoptysis, abdominal pain, nausea, vomiting, diarrhea, constipation, melena. She does report diminished appetite as well. PAST MEDICAL HISTORY: Notable for coronary artery disease, remote myocardial infarction, hypertension, hyperlipidemia, cognitive dysfunction, arthritis, gastroesophageal reflux disease, urinary tract infection, hysterectomy. There is no history of rheumatic fever, angina, congestive heart failure, diabetes or stroke. MEDICATIONS: Her medications at the time of admission include Aricept, aspirin, Pravachol. ALLERGIES: THERE ARE NO MEDICATION ALLERGIES REPORTED. SOCIAL HISTORY: She lives at home with her family. She does not smoke. She does not drink. She is ambulatory. FAMILY HISTORY: Notable for cancer, but not heart disease. Ten-point review of systems, otherwise, unremarkable except as noted above. PHYSICAL EXAMINATION: GENERAL: She is a well-developed elderly woman lying in bed on Telemetry, in no acute distress. VITAL SIGNS: Notable for sinus rhythm, 60-75 beats per minute, afebrile. Blood pressure 123/59, respirations 18-20, O2 sat 96-98% on room air. HEENT: Exam reveals no neck vein distention, thyromegaly, carotid bruits. Mucous membranes moist. Conjunctiva pink. NECK: Supple. LUNGS: Lung valle clear. HEART: Examination reveal normal first and second heart sounds. Soft systolic murmur along the left sternal border. ABDOMEN: Soft. Bowel sounds present. No mass, organomegaly, tenderness, rebound, guarding. No CVA tenderness. No palpable abdominal aortic aneurysm. EXTREMITIES: Exam reveal no cyanosis, clubbing or edema. NEUROLOGIC: Awake, alert and oriented. SKIN: Warm and dry. No rash or cellulitis. PSYCHIATRIC: Normal as to mood and affect. LABORATORY AND IMAGING: EKG demonstrates sinus rhythm at 65 beats per minute. There are diffuse nonspecific ST wave changes and T-wave inversions V3 through V6 which are new compared to a prior EKG. A cervical spine CT without contrast is noted, see report for details. The chest x-ray revealed no focal consolidation, pleural effusion or pneumonia. There is a prominent mediastinum, etc. CT scan of head reveals chronic nonspecific white matter changes that is mild and nonspecific white matter changes. White count normal. Hemoglobin/hematocrit normal, platelet count normal. Electrolytes notable for potassium of 3.2, repeat 3.1. BUN 67, repeat 49; creatinine 2.5, repeat 1.4. Magnesium 2.5. Calcium normal. Blood sugar 108, repeat 105. LFTs unremarkable. Troponin 0.06. Urinalysis is noted. IMPRESSION: Hannah Villafuerte is a 72-year-old woman admitted with dizziness and a fall at home complaining of left arm discomfort, which may be somewhat chronic, but worse after the fall with hypokalemia and an abnormal electrocardiogram but no evidence of chest pain or acute ST elevations and no arrhythmia on Telemetry so far. At this time, I agree with plans. She is on Telemetry. We will check her for postural hypotension. I will repeat her troponin level. Potassium is being replaced. I will repeat her EKG. I will review her old records. An echocardiogram in 11/2016 revealed normal LV function. She is getting Aricept, aspirin, Lipitor, potassium replacement, Rocephin. She got IV fluids. We will monitor Is and Os. Check stool for occult blood. Review old records. She got a dose of meclizine. She feels better this morning. I will follow along with you and make an additional recommendations based on her clinical course. Cong Jeronimo MD MARY
[2018-04-22] MEDS ORDERED: Cefpodoxime (Vantin) 200 mg Tab PO SCH (10:00)
[2018-04-22 14:15] VITALS: BP 119/77; PULSE 76; TEMP 98.5
== END 2018-04-22 16:30 | disposition home or self-care (01) ==
LOC: ED 08:10 → ERH 10:48 → 2RNO 12:21
PROVIDERS: ADMIT Internal Medicine Nephrology; ATTEND Internal Medicine Nephrology
DX: E86.0 Dehydration (principal); I95.9 Hypotension, unspecified; N17.9 Acute kidney failure, unspecified; N39.0 Urinary tract infection, site not specified; I12.9 Hypertensive chronic kidney disease with stage 1 through stage 4 chronic kidney disease, or unspecified chronic kidney disease; N18.3 Chronic kidney disease, stage 3 (moderate); I45.10 Unspecified right bundle-branch block; E78.5 Hyperlipidemia, unspecified; E87.6 Hypokalemia; I25.10 Atherosclerotic heart disease of native coronary artery without angina pectoris; K21.9 Gastro-esophageal reflux disease without esophagitis; I25.2 Old myocardial infarction; M48.02 Spinal stenosis, cervical region; M46.90 Unspecified inflammatory spondylopathy, site unspecified; Z87.891 Personal history of nicotine dependence
CPT/HCPCS: 36415; 70450; 71045; 72125; 80053; 81001; 83735; 84484; 85025; 87086; 87181; 93005; 96374; 99285; G0378; J0694; J0696; J3480; J7030

== ENCOUNTER 2018-06-04 10:48 | Emergency (ER) | payer MEDICARE, OTHER ==
[2018-06-04 10:48] VITALS: BMI 19.0
[2018-06-04 11:15] VITALS: RESP 18; O2SAT 100
--- NOTE | 2018-06-04 11:17 | ED PDOC ---
Arrival/HPI - General Chief Complaint: Abnormal Skin Integrity Time Seen by Provider: 06/04/18 10:58 Historian: Patient - History of Present Illness Narrative History of Present Illness (Text): 06/04/18 11:17 72 year old female, whose past medical includes hypertension, hyperlipidemia, arthritis, GERD, UTI, dizziness, and CKD stage III presents complaining of rash on the neck that began 3 days ago. Patient reports a itchiness and burning sensation at times. She states she used new bottle of the same lotion she has been using for years and wore an old chain necklace which she threw away. Patient denies any new soaps or perfumes. Patient did not take her hypertension medication today due to believing the change of dosage may have caused the rash. Patient denies any fever, chills, sore throat, chest pain, shortness of breath, nausea, vomiting, diarrhea, urinary symptoms, back pain, neck pain, headache, dizziness, or any other complaints. PMD: Dr. Hedrick Time/Duration: Other (3 days) Symptom Onset: Gradual Symptom Course: Unchanged Activities at Onset: Light Context: Home Past Medical History - Provider Review Nursing Documentation Reviewed: Yes - Infectious Disease Hx of Infectious Diseases: None - Tetanus Immunization Tetanus Immunization: Unknown - Cardiac Hx Cardiac Disorders: Yes Hx Hypertension: Yes - Pulmonary Hx Respiratory Disorders: No - Neurological Hx Neurological Disorder: Yes Hx Dizziness: Yes - HEENT Hx HEENT Disorder: No (wears glasses) - Renal Hx Renal Disorder: Yes Hx Renal Failure: Yes - Endocrine/Metabolic Hx Endocrine Disorders: No - Hematological/Oncological Hx Blood Disorders: Yes (sepsis) - Integumentary Hx Dermatological Disorder: No - Musculoskeletal/Rheumatological Hx Falls: Yes (fell today dizzy) - Gastrointestinal Hx Gastrointestinal Disorders: Yes Hx Gastroesophageal Reflux: Yes - Genitourinary/Gynecological Hx Genitourinary Disorders: Yes Hx Urinary Tract Infection: Yes - Psychiatric Hx Psychophysiologic Disorder: Yes Hx Anxiety: Yes Hx Substance Use: No - Surgical History Hx Hysterectomy: Yes - Anesthesia Hx Anesthesia: Yes - Suicidal Assessment Feels Threatened In Home Enviroment: No Family/Social History - Physician Review Nursing Documentation Reviewed: Yes Family/Social History: No Known Family HX Smoking Status: Never Smoked Hx Alcohol Use: No Hx Substance Use: No Hx Substance Use Treatment: No Allergies/Home Meds Allergies/Adverse Reactions: Allergies No Known Allergies Allergy (Verified 06/04/18 11:07) Home Medications: Home Meds Medication Instructions Recorded Confirmed RX: Pravastatin Sodium [Pravachol] 40 mg PO DAILY 12/05/16 04/21/18 RX: Donepezil HCl [Aricept] 5 mg PO DAILY 04/21/18 04/22/18 Review of Systems - Physician Review All systems were reviewed & negative as marked: Yes - Review of Systems Constitutional: absent: Fevers, Other (Chills) ENT: absent: Sore Throat Respiratory: absent: SOB Cardiovascular: absent: Chest Pain Gastrointestinal: absent: Diarrhea, Nausea, Vomiting Genitourinary Female: absent: Dysuria, Frequency, Hematuria Musculoskeletal: absent: Back Pain, Neck Pain Skin: Rash, Pruritis Neurological: absent: Headache, Dizziness Physical Exam - Physical Exam Narrative Physical Exam (Text): Gen: VS reviewed, alert, well developed, well nourished, nontoxic, mild distress. ENT: normal pharynx. Eye: EOMI, PERRL. Neck: Red flat rash streaking on the posterior and anterior aspect of the neck. No open wounds. no JVD, supple, no adenopathy. CV: regular rate, regular rhythm, no rubs, no murmur, no gallops, S1, S2, pulses equal and strong. Pulm: no distress, clear to auscultation, no wheeze, no rhonchi, breath sounds equal, no rales. Abd: soft, nontender, no guarding, no rebound, no rigidity, normal bowel sounds. Ext: no edema. Skin: good color, no rash, no cyanosis. Psych: responds appropriately to questions, normal affect. Neuro: oriented x 3, CN2-12 intact grossly, motor intact, sensation intact. Vital Signs Reviewed: Yes Vital Signs Pulse Resp Pulse Ox 06/04/18 11:08 75 18 100 Temperature: Afebrile Blood Pressure: Hypertensive Pulse: Regular Respiratory Rate: Normal Medical Decision Making ED Course and Treatment: 06/04/18 11:17 Impression: 72 year old female presents complaining of itchy rash that began 3 days ago around the neck. Plan: -- Catapres -- Reassess and disposition Prior Visits: Notes and results from previous visits were reviewed. Progress Notes: 06/04/18 12:32 Patient feels well and ready to go home. Patient is asymptomatic at this time and will follow up with her PMD for blood pressure check. Patient was primarily seen for localized itchy rash on the neck, presumably secondary to either jewelry or perfumes. 06/04/18 17:02 - Scribe Statement The provider has reviewed the documentation as recorded by the Marlys Blevins Provider Scribe Attestation: All medical record entries made by the Marlys were at my direction and personally dictated by me. I have reviewed the chart and agree that the record accurately reflects my personal performance of the history, physical exam, medical decision making, and the department course for this patient. I have also personally directed, reviewed, and agree with the discharge instructions and disposition. Disposition/Present on Arrival - Present on Arrival Any Indicators Present on Arrival: No History of DVT/PE: No History of Uncontrolled Diabetes: No Urinary Catheter: No History of Decub. Ulcer: No History Surgical Site Infection Following: None - Disposition Have Diagnosis and Disposition been Completed?: Yes Diagnosis: Contact dermatitis, Hypertension Disposition: HOME/ ROUTINE Disposition Time: 12:26 Patient Plan: Discharge Condition: STABLE Discharge Instructions (ExitCare): High Blood Pressure in Adults, Contact Dermatitis (DC) Additional Instructions: Follow up with your primary care doctor as soon as possible for blood pressure check. Call tomorrow to make an appointment. EDENILSON OGLESBY, thank you for letting us take care of you today. Your provider was Dr. Sven Vazquez and you were treated for rash on neck. The emergency medical care you received today was directed at your acute symptoms. If you were prescribed any medication, please fill it and take as directed. It may take several days for your symptoms to resolve. Return to the Emergency Department if your symptoms worsen, do not improve, or if you have any other problems. Please contact your doctor or call one of the physicians/clinics you have been referred to that are listed on the Patient Visit Information form that is included in your discharge packet. Bring any paperwork you were given at discharge with you along with any medications you are taking to your follow up visit. Our treatment cannot replace ongoing medical care by a primary care provider outside of the emergency department. Thank you for allowing the [facility] [employer] team to be part of your care today. If you had an X-Ray or CT scan: A Radiologist will review the ED reading if any change in treatment is needed we will contact you. If you had a blood, urine, or wound culture: It will take several days for the results, if any change in treatment is needed we will contact you. If you had an STI test: It will take 48 hours for the results. Please call after 1 week if you have not heard back. Prescriptions: RX: Hydrocortisone 1% Cream [Cortizone 1% Cream] 1 % TP BID #1 tube Forms: [employer] (Angolan)
[2018-06-04 11:23] VITALS: TEMP 98.7
[2018-06-04 12:26] VITALS: BP 181/82; PULSE 77
== END 2018-06-04 12:39 | disposition home or self-care (01) ==
LOC: ED 10:48
DX: L25.9 Unspecified contact dermatitis, unspecified cause (principal); I12.9 Hypertensive chronic kidney disease with stage 1 through stage 4 chronic kidney disease, or unspecified chronic kidney disease; N18.3 Chronic kidney disease, stage 3 (moderate)